=== PATIENT | male | born 1975 | race Caucasian/White ===

== ENCOUNTER 2020-02-17 10:08 | Outpatient (CLI) | payer OTHER, SELFPAY ==
[2020-02-17 11:19] LABS: Alanine Aminotransferase 60 U/L (4-50); Albumin Level 4.5 g/dL (3.5-5.1); Alkaline Phosphatase 71 U/L (38-126); Aspartate Amino Transferase 41 U/L (17-59); Bilirubin,Total 1.4 mg/dL (0.2-1.3); Blood Urea Nitrogen 22 mg/dL (9-20); Calcium 9.1 mg/dL (8.4-10.2); Carbon Dioxide 30 mmol/L (22-30); Chloride 101 mmol/L (98-107); Cholesterol 142 mg/dL (0-200); Estimated Glomerular Filt Rate > 60; Glucose 98 mg/dL (75-110); HDL Direct 34 mg/dL; Potassium 3.9 mmol/L (3.4-5.0); Sodium 138 mmol/L (137-145); Triglycerides 77 mg/dL (<150); Uric Acid 7.8 mg/dL (3.5-8.5)
[2020-02-17 11:30] LABS: LDL Cholesterol Direct 88 mg/dL
== END 2020-02-17 10:09 | disposition home or self-care (01) ==
PROVIDERS: PCP Internal Medicine; Visit Provider Internal Medicine
DX: I10 Essential (primary) hypertension (principal)
CPT/HCPCS: 36415; 80053; 80061; 84550

== ENCOUNTER 2020-08-04 09:10 | Outpatient (CLI) | payer OTHER, SELFPAY ==
[2020-08-04 09:33] LABS: Alanine Aminotransferase 52 U/L (4-50); Albumin Level 4.4 g/dL (3.5-5.1); Alkaline Phosphatase 64 U/L (38-126); Anion Gap 6 mmol/L (8-16); Aspartate Amino Transferase 38 U/L (17-59); Blood Urea Nitrogen 24 mg/dL (9-20); Carbon Dioxide 30 mmol/L (22-30); Chloride 103 mmol/L (98-107); Cholesterol 140 mg/dL (0-200); Estimated Glomerular Filt Rate > 60; Glucose 94 mg/dL (75-110); HDL Direct 36 mg/dL; Potassium 3.8 mmol/L (3.4-5.0); Sodium 139 mmol/L (137-145); Triglycerides 99 mg/dL (<150)
[2020-08-04 09:44] LABS: LDL Cholesterol Direct 83 mg/dL
== END 2020-08-04 09:11 | disposition home or self-care (01) ==
PROVIDERS: PCP Internal Medicine; Visit Provider Internal Medicine
DX: I10 Essential (primary) hypertension (principal)
CPT/HCPCS: 36415; 80053; 80061

== ENCOUNTER 2024-12-16 00:09 | Day surgery (SDC) | payer OTHER, SELFPAY ==
[2024-12-07 13:32] VITALS: BMI 35.9
--- OUTSIDE RECORDS SUMMARY | 2024-12-16 00:11 | XMS_ITS | Data Portability ---
Author Organization [place] [facility], Main Office Address [address] [place] [address] Assessment Encounter Date Assessment Date Assessment LastModified by Organization Details LastModified Time 02/13/2023 02/13/2023 Neosporin right groin for a week blood work weight loss medicines discussed diagnosis discussed follow-up 6 months he will call in 5-7 days if his groin area is not improving. Not available 02/13/2023 12:49:54 08/07/2023 08/07/2023 Blood work Weight loss Continue current therapy Follow-up 6 months Not available 08/09/2023 19:37:21 Plan of Treatment Reminders Order Date Submit Date Provider Last Modified By Organization Details Last Modified Time Details Appointments None recorded . Lab CBC w/ auto diff 023 08/07/20 [facility] (Lab), [address] [place], [address], 3 12:55:21 lipid panel, serum 023 08/07/20 23 [facility] (Lab), [address] [place], [address], 3 13:12:06 CMP, serum or plasma 023 08/07/20 23 [facility] (Lab), [address] [place], [address], 3 13:12:17 CMP, serum or plasma 023 02/14/20 23 [facility] (Lab), [address] [place], [address], 3 12:52:32 lipid panel, serum 023 02/14/20 23 [facility] (Lab), [address] [place], [address], 3 12:52:37 Referral None recorded . Procedures None recorded . Surgeries None recorded . Imaging None recorded . Medication Orders None recorded . Patient TargetsNo targets recorded. Patient InstructionsNo instructions recorded. Reason for Referral None Reported. Results Created Date Observation Date Name Description Value Unit Range Abnormal Flag Note LastModifiedBy Organization Detail LastModifiedTime 10/04/1910/04/2021 LIPID PANEL cholesterol 182 mg/dL 140-19 9 [facility] LUIS NSUS RECOM MENDA TION FOR CECIL STERO L: ADULT CHILD LOW RISK: <200 <170 BORDE RLINE : <200- 239 ----- HIGH RISK: >240 >200 Not Available [facility] (Lab) [address] [place], [address], 10/04/2021 14:26:32 10/04/19 22 10/04/2021 LIPID PANEL triglyceride s 132 mg/dL 0-150 NIH LUIS NSUS REPOR T RECOM MENDA TION FOR TRIGL YCERI RADHA: ADULT CHILD LOW RISK: <150 ----- BODER LINE: 150-1 99 ----- HIGH RISK: >200 ----- Not Available [facility] (Lab) [address] [place], [address], 10/04/2021 14:26:32 10/04/19 22 10/04/2021 LIPID PANEL HDL cholesterol 45 mg/dL 40- Not Available [facility] (Lab) [address] [place], [address], 10/04/2021 14:26:32 10/04/19 22 10/04/2021 LIPID PANEL LDL cholesterol, calculated 111 mg/dL 0-130 NIH LUIS NSUS REPOR T RECOM MENDA TIONS FOR LDL: ADULT CHILD LOW RISK <130 <110 (OPTI MAL LDL) <100 ----- BORDE RLINE : 130-1 59 ----- HIGH RISK: >160 >130 A TRIGL YCERI DE RESUL T >400 INVAL IDATE S THE CALCU LATIO N FOR LDL FRACT IONAT ION - THE LDL RESUL T WILL NOT BE REPOR ADRIANA. Not Available [facility] (Lab) [address] [place], [address], 10/04/2021 14:26:32 10/04/19 22 10/04/2021 COMPR EHENS MICHELLE METAB OLIC PANEL globulin 2.9 g/dL 2.6-4. 2 Not Available [facility] (Lab) [address] [place], [address], 10/04/2021 14:26:27 10/04/19 22 10/04/2021 COMPR EHENS MICHELLE METAB OLIC PANEL A/G ratio 1.6 ratio 1.0-2. 0 Not Available [facility] (Lab) [address] [place], [address], 10/04/2021 14:26:27 10/04/19 22 10/04/2021 COMPR EHENS MICHELLE METAB OLIC PANEL sodium 144 mmol/ L 137-14 5 Not Available [facility] (Lab) [address] [place], [address], 10/04/2021 14:26:27 10/04/19 22 10/04/2021 COMPR EHENS MICHELLE METAB OLIC PANEL potassium 4.2 mmol/ L 3.5-5. 1 Not Available [facility] (Lab) [address] [place], [address], 10/04/2021 14:26:27 10/04/19 22 10/04/2021 COMPR EHENS MICHELLE METAB OLIC PANEL chloride 104 mmol/ L 98-107 Not Available [facility] (Lab) [address] [place], [address], 10/04/2021 14:26:27 10/04/19 22 10/04/2021 COMPR EHENS MICHELLE METAB OLIC PANEL carbon dioxide 28 mmol/ L 22-30 Not Available [facility] (Lab) [address] [place], [address], 10/04/2021 14:26:27 10/04/19 22 10/04/2021 COMPR EHENS MICHELLE METAB OLIC PANEL agap 16.2 mmol/ L 14-22 Not Available [facility] (Lab) [address] [place], [address], 10/04/2021 14:26:27 10/04/19 22 10/04/2021 COMPR EHENS MICHELLE METAB OLIC PANEL glucose 101 mg/dL 70-99 high Not Available [facility] (Lab) [address] [place], [address], 10/04/2021 14:26:27 10/04/19 22 10/04/2021 COMPR EHENS MICHELLE METAB OLIC PANEL BUN 35 mg/dL 8-19 high Not Available [facility] (Lab) [address] [place], [address], 10/04/2021 14:26:27 10/04/19 22 10/04/2021 COMPR EHENS MICHELLE METAB OLIC PANEL creatinine 1.41 mg/dL 0.66-1 .25 high Not Available [facility] (Lab) [address] [place], [address], 10/04/2021 14:26:27 10/04/19 22 10/04/2021 COMPR EHENS MICHELLE METAB OLIC PANEL GFR 54 Refer ence Range : Carmel ge GFR Healt hy Adult : >60 mL/mi n/1.7 3 m2 Chron ic Kidne y Disea se: 15-60 mL/mi n/1.7 3 m2 Kidne y Failu re: <15/m L/min /1.73 m2 www.n iddk. nih.g ov The MDRD study equat ion has not been valid ated in child shawna <18 years of age; pregn ant women ; the elder ly >85 years of age; or in some racia l or ethni c subgr oups, such as Hispa nics. Outsi de the valid ated mimi eters , estim ated GFR is less accur ate, requi ring clini isatu judgm ent on a case- by-ca se basis . Clini isatu inter preta tion for other races and ages must be made by the clini veto. The MDRD study equat ion has not been valid ated for the evalu ation of serum creat inine relat ed to nutri danyel l statu s or medic ation usage . For perso ns <18 years of age, a pedia tric GFR calcu lator is avail able on the [facility] websi te: https ://arline casas.viola browne.o rg/pr ofess ional s/kdo qi/gf r_cal culat or Not Available [facility] (Lab) [address] [place], [address], 10/04/2021 14:26:27 10/04/19 22 10/04/2021 COMPR EHENS MICHELLE METAB OLIC PANEL alkaline phosphatase 58 U/L 38-126 Not Available [facility] (Lab) [address] [place], [address], 10/04/2021 14:26:27 10/04/19 22 10/04/2021 COMPR EHENS MICHELLE METAB OLIC PANEL alanine aminotransfe rase 49 U/L 0-50 Not Available [facility] (Lab) [address] [place], [address], 10/04/2021 14:26:27 10/04/19 22 10/04/2021 COMPR EHENS MICHELLE METAB OLIC PANEL aspartate aminotransfe rase 35 U/L 15-46 Not Available [facility] (Lab) [address] [place], [address], 10/04/2021 14:26:27 10/04/19 22 10/04/2021 COMPR EHENS MICHELLE METAB OLIC PANEL bilirubin, total 1.00 mg/dL 0.20-1 .30 Not Available [facility] (Lab) [address] [place], [address], 10/04/2021 14:26:27 10/04/19 22 10/04/2021 COMPR EHENS MICHELLE METAB OLIC PANEL calcium 9.0 mg/dL 8.4-10 .2 Not Available [facility] (Lab) [address] [place], [address], 10/04/2021 14:26:27 10/04/19 22 10/04/2021 COMPR EHENS MICHELLE METAB OLIC PANEL total protein 7.6 g/dL 6.3-8. 2 Not Available [facility] (Lab) [address] [place], [address], 10/04/2021 14:26:27 10/04/19 22 10/04/2021 COMPR EHENS MICHELLE METAB OLIC PANEL albumin 4.7 g/dL 3.4-5. 0 Not Available [facility] (Lab) [address] [place], [address], 10/04/2021 14:26:27 02/15/20 22 02/14/2022 LIPID PANEL cholesterol 190 mg/dL 140-19 9 NIH LUIS NSUS RECOM MENDA TION FOR CECIL STERO L: ADULT CHILD LOW RISK: <200 <170 BORDE RLINE : <200- 239 ----- HIGH RISK: >240 >200 Not Available [facility] (Lab) [address] [place], [address], 02/14/2022 12:40:45 02/15/20 22 02/14/2022 LIPID PANEL triglyceride s 127 mg/dL 0-150 NIH LUIS NSUS REPOR T RECOM MENDA TION FOR TRIGL YCERI RADHA: ADULT CHILD LOW RISK: <150 ----- BODER LINE: 150-1 99 ----- HIGH RISK: >200 ----- Not Available [facility] (Lab) [address] [place], [address], 02/14/2022 12:40:45 02/15/20 22 02/14/2022 LIPID PANEL HDL cholesterol 40 mg/dL 40- Not Available [facility] (Lab) [address] [place], [address], 02/14/2022 12:40:45 02/15/20 22 02/14/2022 LIPID PANEL LDL cholesterol, calculated 125 mg/dL 0-130 NIH LUIS NSUS REPOR T RECOM MENDA TIONS FOR LDL: ADULT CHILD LOW RISK <130 <110 (OPTI MAL LDL) <100 ----- DEZ RLINE : 130-1 59 ----- HIGH RISK: >160 >130 A TRIGL YCERI DE RESUL T >400 INVAL IDATE S THE CALCU LATIO N FOR LDL FRACT IONAT ION - THE LDL RESUL T WILL NOT BE REPOR ADRIANA. Not Available [facility] (Lab) [address] [place], [address], 02/14/2022 12:40:45 02/15/20 22 02/14/2022 COMPR EHENS MICHELLE METAB OLIC PANEL total protein 8.0 g/dL 6.3-8. 2 Not Available [facility] (Lab) [address] [place], [address], 02/14/2022 12:40:42 02/15/20 22 02/14/2022 COMPR EHENS MICHELLE METAB OLIC PANEL albumin 4.8 g/dL 3.4-5. 0 Not Available [facility] (Lab) [address] [place], [address], 02/14/2022 12:40:42 02/15/20 22 02/14/2022 COMPR EHENS MICHELLE METAB OLIC PANEL globulin 3.2 g/dL 2.6-4. 2 Not Available [facility] (Lab) [address] [place], [address], 02/14/2022 12:40:42 02/15/20 22 02/14/2022 COMPR EHENS MICHELLE METAB OLIC PANEL A/G ratio 1.5 ratio 1.0-2. 0 Not Available [facility] (Lab) [address] [place], [address], 02/14/2022 12:40:42 02/15/20 22 02/14/2022 COMPR EHENS MICHELLE METAB OLIC PANEL sodium 145 mmol/ L 137-14 5 Not Available [facility] (Lab) [address] [place], [address], 02/14/2022 12:40:42 02/15/20 22 02/14/2022 COMPR EHENS MICHELLE METAB OLIC PANEL potassium 4.7 mmol/ L 3.5-5. 1 Not Available [facility] (Lab) [address] [place], [address], 02/14/2022 12:40:42 02/15/20 22 02/14/2022 COMPR EHENS MICHELLE METAB OLIC PANEL chloride 113 mmol/ L 98-107 high Not Available [facility] (Lab) [address] [place], [address], 02/14/2022 12:40:42 02/15/20 22 02/14/2022 COMPR EHENS MICHELLE METAB OLIC PANEL carbon dioxide 22 mmol/ L 22-30 Not Available [facility] (Lab) [address] [place], [address], 02/14/2022 12:40:42 02/15/20 22 02/14/2022 COMPR EHENS MICHELLE METAB OLIC PANEL anion gap 14.7 mmol/ L 14-22 Not Available [facility] (Lab) [address] [place], [address], 02/14/2022 12:40:42 02/15/20 22 02/14/2022 COMPR EHENS MICHELLE METAB OLIC PANEL glucose 86 mg/dL 70-99 Not Available [facility] (Lab) [address] [place], [address], 02/14/2022 12:40:42 02/15/20 22 02/14/2022 COMPR EHENS MICHELLE METAB OLIC PANEL BUN 34 mg/dL 8-19 high Not Available [facility] (Lab) [address] [place], [address], 02/14/2022 12:40:42 02/15/20 22 02/14/2022 COMPR EHENS MICHELLE METAB OLIC PANEL creatinine 1.72 mg/dL 0.66-1 .25 high Not Available [facility] (Lab) [address] [place], [address], 02/14/2022 12:40:42 02/15/20 22 02/14/2022 COMPR EHENS MICHELLE METAB OLIC PANEL GFR 43 Refer ence Range : [place]el ge GFR Healt hy Adult : >60 mL/mi n/1.7 3 m2 Chron ic Kidne y Disea se: 15-60 mL/mi n/1.7 3 m2 Kidne y Failu re: <15/m L/min /1.73 m2 www.n iddk. nih.g ov The MDRD study equat ion has not been valid ated in child shawna <18 years of age; pregn ant women ; the elder ly >85 years of age; or in some racia l or ethni c subgr oups, such as [facility] nics. Outsi de the valid ated mimi eters , estim ated GFR is less accur ate, requi ring clini isatu judgm ent on a case- by-ca se basis . Clini isatu inter preta tion for other races and ages must be made by the clini veto. The MDRD study equat ion has not been valid ated for the evalu ation of serum creat inine relat ed to nutri danyel l statu s or medic ation usage . For perso ns <18 years of age, a pedia tric GFR calcu lator is avail able on the [facility] websi te: https ://arline w.viola [facility].o rg/pr ofess ional s/kdo qi/gf r_cal culat or Not Available [facility] (Lab) [address] [place], [address], 02/14/2022 12:40:42 02/15/20 22 02/14/2022 COMPR EHENS MICHELLE METAB OLIC PANEL alkaline phosphatase 56 U/L 38-126 Not Available [facility] (Lab) [address] [place], [address], 02/14/2022 12:40:42 02/15/20 22 02/14/2022 COMPR EHENS MICHELLE METAB OLIC PANEL alanine aminotransfe rase 49 U/L 0-50 Not Available [facility] (Lab) [address] [place], [address], 02/14/2022 12:40:42 02/15/20 22 02/14/2022 COMPR EHENS MICHELLE METAB OLIC PANEL aspartate aminotransfe rase 45 U/L 15-46 Not Available [facility] (Lab) [address] [place], [address], 02/14/2022 12:40:42 02/15/20 22 02/14/2022 COMPR EHENS MICHELLE METAB OLIC PANEL bilirubin, total 1.00 mg/dL 0.20-1 .30 Not Available [facility] (Lab) [address] [place], [address], 02/14/2022 12:40:42 02/15/20 22 02/14/2022 COMPR EHENS MICHELLE METAB OLIC PANEL calcium 9.6 mg/dL 8.4-10 .2 Not Available [facility] (Lab) [address] [place], [address], 02/14/2022 12:40:42 02/15/20 22 02/14/2022 CBC/C OMPLE TE BLD COUNT W/DIF F white blood cells 6.5 x10'3 /uL 4.2-10 .8 Not Available [facility] (Lab) [address] [place], [address], 02/14/2022 11:32:29 02/15/20 22 02/14/2022 CBC/C OMPLE TE BLD COUNT W/DIF F red blood cells 4.48 x10'6 /uL 4.10-5 .80 Not Available [facility] (Lab) [address] [place], [address], 02/14/2022 11:32:29 02/15/20 22 02/14/2022 CBC/C OMPLE TE BLD COUNT W/DIF F hemoglobin 13.1 g/dL 13.2-1 7.0 low Not Available [facility] (Lab) [address] [place], [address], 02/14/2022 11:32:29 02/15/20 22 02/14/2022 CBC/C OMPLE TE BLD COUNT W/DIF F hematocrit 40.0 % 39.3-5 0.0 Not Available [facility] (Lab) [address] [place], [address], 02/14/2022 11:32:29 02/15/20 22 02/14/2022 CBC/C OMPLE TE BLD COUNT W/DIF F mean red cell volume 89.3 fL 80.0-9 7.0 Not Available [facility] (Lab) [address] [place], [address], 02/14/2022 11:32:29 02/15/20 22 02/14/2022 CBC/C OMPLE TE BLD COUNT W/DIF F mean red cell hemoglobin 29.2 pg 27.0-3 3.0 Not Available [facility] (Lab) [address] [place], [address], 02/14/2022 11:32:29 02/15/20 22 02/14/2022 CBC/C OMPLE TE BLD COUNT W/DIF F mean RBC HGB concentratio n 32.8 g/dL 31.0-3 6.0 Not Available [facility] (Lab) [address] [place], [address], 02/14/2022 11:32:29 02/15/20 22 02/14/2022 CBC/C OMPLE TE BLD COUNT W/DIF F red cell distribution width 13.3 % 11.8-1 5.5 Not Available [facility] (Lab) [address] [place], [address], 02/14/2022 11:32:29 02/15/20 22 02/14/2022 CBC/C OMPLE TE BLD COUNT W/DIF F platelets 194 x10'3 /uL 150-40 0 Not Available [facility] (Lab) [address] [place], [address], 02/14/2022 11:32:29 02/15/20 22 02/14/2022 CBC/C OMPLE TE BLD COUNT W/DIF F mean platelet volume 11.4 fL 9.0-12 .4 Not Available [facility] (Lab) [address] [place], [address], 02/14/2022 11:32:29 02/15/20 22 02/14/2022 CBC/C OMPLE TE BLD COUNT W/DIF F neutrophils 67.1 % 39.0-7 2.0 Not Available [facility] (Lab) [address] [place], [address], 02/14/2022 11:32:29 02/15/20 22 02/14/2022 CBC/C OMPLE TE BLD COUNT W/DIF F lymphocytes 22.1 % 16.0-4 7.0 Not Available [facility] (Lab) [address] [place], [address], 02/14/2022 11:32:29 02/15/20 22 02/14/2022 CBC/C OMPLE TE BLD COUNT W/DIF F monocytes 6.5 % 5.0-12 .0 Not Available [facility] (Lab) [address] [place], [address], 02/14/2022 11:32:29 02/15/20 22 02/14/2022 CBC/C OMPLE TE BLD COUNT W/DIF F eosinophils 3.2 % 1.0-7. 0 Not Available [facility] (Lab) [address] [place], [address], 02/14/2022 11:32:29 02/15/20 22 02/14/2022 CBC/C OMPLE TE BLD COUNT W/DIF F basophils 0.8 % 0.0-2. 0 Not Available [facility] (Lab) [address] [place], [address], 02/14/2022 11:32:29 02/15/20 22 02/14/2022 CBC/C OMPLE TE BLD COUNT W/DIF F immature granulocytes 0.3 % 0.00-0 .50 Not Available [facility] (Lab) [address] [place], [address], 02/14/2022 11:32:29 02/15/20 22 02/14/2022 CBC/C OMPLE TE BLD COUNT W/DIF F neutrophils, absolute count 4.35 x10'3 /uL 1.5-8. 0 Not Available [facility] (Lab) [address] [place], [address], 02/14/2022 11:32:29 02/15/20 22 02/14/2022 CBC/C OMPLE TE BLD COUNT W/DIF F lymphocytes, absolute count 1.43 x10'3 /uL 1.07-3 .43 Not Available [facility] (Lab) [address] [place], [address], 02/14/2022 11:32:29 02/15/20 22 02/14/2022 CBC/C OMPLE TE BLD COUNT W/DIF F monocytes, absolute count 0.42 x10'3 /uL 0.29-0 .99 Not Available [facility] (Lab) [address] [place], [address], 02/14/2022 11:32:29 02/15/20 22 02/14/2022 CBC/C OMPLE TE BLD COUNT W/DIF F eosinophils, absolute count 0.21 x10'3 /uL 0.02-0 .53 Not Available [facility] (Lab) [address] [place], [address], 02/14/2022 11:32:29 02/15/20 22 02/14/2022 CBC/C OMPLE TE BLD COUNT W/DIF F basophils, absolute count 0.05 x10'3 /uL 0.01-0 .08 Not Available [facility] (Lab) [address] [place], [address], 02/14/2022 11:32:29 02/15/20 22 02/14/2022 CBC/C OMPLE TE BLD COUNT W/DIF F immature granulocytes ,absolute 0.02 x10'3 /uL 0.00-0 .05 Not Available [facility] (Lab) [address] [place], [address], 02/14/2022 11:32:29 02/15/20 22 02/14/2022 CBC/C OMPLE TE BLD COUNT W/DIF F nucleated red blood cells 0.0 % -0 Not Available [facility] (Lab) [address] [place], [address], 02/14/2022 11:32:29 02/15/20 22 02/14/2022 CBC/C OMPLE TE BLD COUNT W/DIF F NRBC# 0.00 x10'3 /uL Not Available [facility] (Lab) [address], [place], [address], 02/14/2022 11:32:29 03/13/20 22 03/13/2022 COLOG UARD cologuard result reportable negati ve negati ve NEGAT MICHELLE TEST RESUL T. A negat michelle Colog uard resul t indic ates a low likel ihood that a color ectal cance r (CRC) or advan celestina adeno ma (damian omato us polyp s with more advan celestina pre-m align ant featu res) is prese nt. The [facility] e that a perso n with a negat michelle Colog uard test has a color ectal cance r is less than 1 in 1500 (nega tive predi ctive value >99.9 %) or has an advan celestina adeno ma is less than 5.3% (nega tive predi ctive value 94.7% ). These data are based on a prosp ectiv e cross -sect ional study of 0 indiv idual s at [facility] risk for color ectal cance r who were scree estella with both Colog uard and colon oscop y. (Kolby Faustin et al, N Engl J Med 2014; 370(1 4):12 86-12 97) The danielle l value (refe rence range ) for this assay is negat michelle. COLOG UARD RE-SC REENI NG RECOM MENDA TION: Perio dic color ectal cance r scree luisa is an impor tant part of preve ntive healt hcare for asymp tomat ic indiv idual s at [place] risk for color ectal cance r. Follo wing a negat michelle Colog uard resul t, the Ameri can Cance r Socie ty and U.S. Multi -Soci ety Task Force scree luisa guide lines recom mend a Colog uard re-sc reeni ng inter thania of 3 years . Refer ences : Ameri can Cance r Socie ty Guide line for Color ectal Cance r Scree luisa: https ://arline w.can cer.o rg/ca ncer/ colon -rect al-ca ncer/ detec tion- diagn osis- stagi ng/ac s-rec ommen datio ns.ht ml.; Franky OTTO, Kaela MIR, Hal WolffK, Color ectal Cance r Scree luisa: Recom menda tions for Physi cians and Patie nts from the U.S. Multi -Soci ety Task Force on Color ectal Cance r Scree Lulu moran rolog y 2017; 112:1 016-1 030. TEST DESCR IPTIO N: Fults site algor ithmi c noelle sis of stool DNA-b iomar kers with hemog lobin immun oassa y. Quant itati ve value s of indiv idual bioma rkers are not repor table and are not assoc iated with indiv idual bioma rker resul t refer ence range s. Colog uard is inten ded for color ectal cance r scree luisa of adult s of eithe r sex, 45 years or older , who are at [facility] for color ectal cance r (CRC) . Colog uard has been appro isaura for use by the U.S. FDA. The perfo rmanc e of Colog uard was estab lishe d in a cross secti onal study of [facility] adult s aged 50-84 . Colog uard perfo rmanc e in patie nts ages 45 to 49 years was estim ated by sub-g roup noelle sis of near- age group s. Colon oscop ies perfo rmed for a posit michelle resul t may find as the most clini shira signi kunal catherine n: color ectal cance r [4.0% ], advan celestina adeno ma (incl uding sessi le earline adriana polyp s great er than or equal to 1cm diame ter) [20%] or non- advan celestina adeno ma [31%] ; or no color ectal neopl lizbeth [45%] . These estim ates are deriv ed from a prosp ectiv e cross -sect ional scree luisa study of 10,00 0 indiv idual s at [facility] risk for color ectal cance r who were scree setella with both Colog uard and colon oscop y. (Kolby Webster. et al, N Engl J Med 2014; 370(1 4):12 86-12 97.) Colog uard may produ ce a false negat michelle or false posit michelle resul t (no color ectal cance r or preca ncero us polyp prese nt at colon oscop y follo w up). A negat michelle Colog uard test resul t does not guara ntee the absen ce of CRC or advan celestina adeno ma (pre- cance r). The curre nt Colog uard scree luisa inter thania is every 3 years . (Amer ican Cance r Socie ty and U.S. Multi -Soci ety Task Force ). Colog uard perfo rmanc e data in a 10,00 0 patie nt pivot al study using colon oscop y as the refer ence metho d can be acces sed at the follo wing locat ion: www.e xactl abs.c om/re radha . Addit ional descr iptio n of the Colog uard test proce ss, warni ngs and preca ution s can be found at www.c ologu maricarmen.c om. Not Available [facility] (Cologuard Orders Only) [address], [place], [address], 03/22/2022 01:40:28 02/14/20 23 02/13/2023 COMPR EHENS MICHELLE METAB OLIC PANEL sodium 143 mmol/ L 137-14 5 Not Available [facility] (Lab) [address] [place], [address], 02/13/2023 12:52:32 02/14/20 23 02/13/2023 COMPR EHENS MICHELLE METAB OLIC PANEL potassium 4.5 mmol/ L 3.5-5. 1 Not Available [facility] (Lab) [address] [place], [address], 02/13/2023 12:52:32 02/14/20 23 02/13/2023 COMPR EHENS MICHELLE METAB OLIC PANEL chloride 105 mmol/ L 98-107 Not Available [facility] (Lab) [address] [place], [address], 02/13/2023 12:52:32 02/14/20 23 02/13/2023 COMPR EHENS MICHELLE METAB OLIC PANEL carbon dioxide 26 mmol/ L 22-30 Not Available [facility] (Lab) [address] [place], [address], 02/13/2023 12:52:32 02/14/20 23 02/13/2023 COMPR EHENS MICHELLE METAB OLIC PANEL anion gap 16.5 mmol/ L 14-22 Not Available [facility] (Lab) [address] [place], [address], 02/13/2023 12:52:32 02/14/20 23 02/13/2023 COMPR EHENS MICHELLE METAB OLIC PANEL glucose 86 mg/dL 70-99 Not Available [facility] (Lab) [address] [place], [address], 02/13/2023 12:52:32 02/14/20 23 02/13/2023 COMPR EHENS MICHELLE METAB OLIC PANEL BUN 25 mg/dL 8-19 high Not Available [facility] (Lab) [address] [place], [address], 02/13/2023 12:52:32 02/14/20 23 02/13/2023 COMPR EHENS MICHELLE METAB OLIC PANEL creatinine 1.35 mg/dL 0.66-1 .25 high Not Available [facility] (Lab) [address] [place], [address], 02/13/2023 12:52:32 02/14/20 23 02/13/2023 COMPR EHENS MICHELLE METAB OLIC PANEL GFR 57 Refer ence Range : [place] ge GFR Healt hy Adult : >60 mL/mi n/1.7 3 m2 Chron ic Kidne y Disea se: 15-60 mL/mi n/1.7 3 m2 Kidne y Failu re: <15/m L/min /1.73 m2 [email or web address] The MDRD study equat ion has not been valid ated in child shawna <18 years of age; pregn ant women ; the elder ly >85 years of age; or in some racia l or ethni c subgr oups, such as Hispa nics. Outsi de the valid ated mimi eters , estim ated GFR is less accur ate, requi ring clini isatu judgm ent on a case- by-ca se basis . Clini isatu inter preta tion for other races and ages must be made by the clini veto. The MDRD study equat ion has not been valid ated for the evalu ation of serum creat inine relat ed to nutri danyel l statu s or medic ation usage . For perso ns <18 years of age, a pedia tric GFR calcu lator is avail able on the [facility] websi te: https ://arline w.kid pavan.o rg/pr ofess ional s/kdo qi/gf r_cal culat or Not Available [facility] (Lab) [address] [place], [address], 02/13/2023 12:52:32 02/14/20 23 02/13/2023 COMPR EHENS MICHELLE METAB OLIC PANEL alkaline phosphatase 56 U/L 38-126 Not Available [facility] (Lab) [address] [place], [address], 02/13/2023 12:52:32 02/14/20 23 02/13/2023 COMPR EHENS MICHELLE METAB OLIC PANEL alanine aminotransfe rase 62 U/L 0-50 high Not Available [facility] (Lab) [address] [place], [address], 02/13/2023 12:52:32 02/14/20 23 02/13/2023 COMPR EHENS MICHELLE METAB OLIC PANEL aspartate aminotransfe rase 39 U/L 15-46 Not Available [facility] (Lab) [address] [place], [address], 02/13/2023 12:52:32 02/14/20 23 02/13/2023 COMPR EHENS MICHELLE METAB OLIC PANEL bilirubin, total 1.20 mg/dL 0.20-1 .30 Not Available [facility] (Lab) [address] [place], [address], 02/13/2023 12:52:32 02/14/20 23 02/13/2023 COMPR EHENS MICHELLE METAB OLIC PANEL calcium 9.1 mg/dL 8.4-10 .2 Not Available [facility] (Lab) [address] [place], [address], 02/13/2023 12:52:32 02/14/20 23 02/13/2023 COMPR EHENS MICHELLE METAB OLIC PANEL total protein 7.5 g/dL 6.3-8. 2 Not Available [facility] (Lab) [address] [place], [address], 02/13/2023 12:52:32 02/14/20 23 02/13/2023 COMPR EHENS MICHELLE METAB OLIC PANEL albumin 4.3 g/dL 3.4-5. 0 Not Available [facility] (Lab) [address] [place], [address], 02/13/2023 12:52:32 02/14/20 23 02/13/2023 COMPR EHENS MICHELLE METAB OLIC PANEL globulin 3.2 g/dL 2.6-4. 2 Not Available [facility] (Lab) [address] [place], [address], 02/13/2023 12:52:32 02/14/20 23 02/13/2023 COMPR EHENS MICHELLE METAB OLIC PANEL A/G ratio 1.3 ratio 1.0-2. 0 Not Available [facility] (Lab) [address] [place], [address], 02/13/2023 12:52:32 02/14/2002/13/2023 LIPID PANEL cholesterol 143 mg/dL 140-19 9 [facility] LUIS NSUS RECOM MENDA TION FOR CECIL STERO L: ADULT CHILD LOW RISK: <200 <170 BORDE RLINE : <200- 239 ----- HIGH RISK: >240 >200 Not Available [facility] (Lab) [address] [place], [address], 02/13/2023 12:52:36 02/14/2002/13/2023 LIPID PANEL triglyceride s 129 mg/dL 0-150 NIH LUIS NSUS REPOR T RECOM MENDA TION FOR TRIGL YCERI RADHA: ADULT CHILD LOW RISK: <150 ----- BODER LINE: 150-1 99 ----- HIGH RISK: >200 ----- Not Available [facility] (Lab) [address] [place], [address], 02/13/2023 12:52:36 02/14/2002/13/2023 LIPID PANEL HDL cholesterol 37 mg/dL 40- low Not Available [facility] (Lab) [address] [place], [address], 02/13/2023 12:52:36 02/14/2002/13/2023 LIPID PANEL LDL cholesterol, calculated 80 mg/dL 0-130 [facility] LUIS NSUS REPOR T RECOM MENDA TIONS FOR LDL: ADULT CHILD LOW RISK <130 <110 (OPTI MAL LDL) <100 ----- BORDE RLINE : 130-1 59 ----- HIGH RISK: >160 >130 A TRIGL YCERI DE RESUL T >400 INVAL IDATE S THE CALCU LATIO N FOR LDL FRACT IONAT ION - THE LDL RESUL T WILL NOT BE REPOR ADRIANA. Not Available [facility] (Lab) [address] [place], [address], 02/13/2023 12:52:36 08/09/20 23 08/09/2023 CBC/C OMPLE TE BLD COUNT W/DIF F white blood cells 6.4 x10'3 /uL 4.2-10 .8 Not Available [facility] (Lab) [address] [place], [address], 08/09/2023 12:55:20 08/09/20 23 08/09/2023 CBC/C OMPLE TE BLD COUNT W/DIF F red blood cells 4.76 x10'6 /uL 4.10-5 .80 Not Available [facility] (Lab) [address] [place], [address], 08/09/2023 12:55:20 08/09/20 23 08/09/2023 CBC/C OMPLE TE BLD COUNT W/DIF F hemoglobin 14.3 g/dL 13.2-1 7.0 Not Available [facility] (Lab) [address] [place], [address], 08/09/2023 12:55:20 08/09/20 23 08/09/2023 CBC/C OMPLE TE BLD COUNT W/DIF F hematocrit 43.5 % 39.3-5 0.0 Not Available [facility] (Lab) [address] [place], [address], 08/09/2023 12:55:20 08/09/20 23 08/09/2023 CBC/C OMPLE TE BLD COUNT W/DIF F mean red cell volume 91.4 fL 80.0-9 7.0 Not Available [facility] (Lab) [address] [place], [address], 08/09/2023 12:55:20 08/09/20 23 08/09/2023 CBC/C OMPLE TE BLD COUNT W/DIF F mean red cell hemoglobin 30.0 pg 27.0-3 3.0 Not Available [facility] (Lab) [address] [place], [address], 08/09/2023 12:55:20 08/09/20 23 08/09/2023 CBC/C OMPLE TE BLD COUNT W/DIF F mean RBC HGB concentratio n 32.9 g/dL 31.0-3 6.0 Not Available [facility] (Lab) [address] [place], [address], 08/09/2023 12:55:20 08/09/20 23 08/09/2023 CBC/C OMPLE TE BLD COUNT W/DIF F red cell distribution width 12.9 % 11.8-1 5.5 Not Available [facility] (Lab) [address] [place], [address], 08/09/2023 12:55:20 08/09/20 23 08/09/2023 CBC/C OMPLE TE BLD COUNT W/DIF F platelets 178 x10'3 /uL 150-40 0 Not Available [facility] (Lab) [address] [place], [address], 08/09/2023 12:55:20 08/09/20 23 08/09/2023 CBC/C OMPLE TE BLD COUNT W/DIF F mean platelet volume 11.3 fL 9.0-12 .4 Not Available [facility] (Lab) [address] [place], [address], 08/09/2023 12:55:20 08/09/20 23 08/09/2023 CBC/C OMPLE TE BLD COUNT W/DIF F neutrophils 73.0 % 39.0-7 2.0 high Not Available [facility] (Lab) [address] [place], [address], 08/09/2023 12:55:20 08/09/20 23 08/09/2023 CBC/C OMPLE TE BLD COUNT W/DIF F lymphocytes 18.0 % 16.0-4 7.0 Not Available [facility] (Lab) [address] [place], [address], 08/09/2023 12:55:20 08/09/20 23 08/09/2023 CBC/C OMPLE TE BLD COUNT W/DIF F monocytes 6.9 % 5.0-12 .0 Not Available [facility] (Lab) [address] [place], [address], 08/09/2023 12:55:20 08/09/20 23 08/09/2023 CBC/C OMPLE TE BLD COUNT W/DIF F eosinophils 0.9 % 1.0-7. 0 low Not Available [facility] (Lab) [address] [place] [place], [address], 08/09/2023 12:55:20 08/09/20 23 08/09/2023 CBC/C OMPLE TE BLD COUNT W/DIF F basophils 0.9 % 0.0-2. 0 Not Available [facility] (Lab) [address] [place], [address], 08/09/2023 12:55:20 08/09/20 23 08/09/2023 CBC/C OMPLE TE BLD COUNT W/DIF F immature granulocytes 0.3 % 0.00-0 .50 Not Available [facility] (Lab) [address] [place], [address], 08/09/2023 12:55:20 08/09/20 23 08/09/2023 CBC/C OMPLE TE BLD COUNT W/DIF F neutrophils, absolute count 4.66 x10'3 /uL 1.5-8. 0 Not Available [facility] (Lab) [address] [place], [address], 08/09/2023 12:55:20 08/09/20 23 08/09/2023 CBC/C OMPLE TE BLD COUNT W/DIF F lymphocytes, absolute count 1.15 x10'3 /uL 1.07-3 .43 Not Available [facility] (Lab) [address] [place], [address], 08/09/2023 12:55:20 08/09/20 23 08/09/2023 CBC/C OMPLE TE BLD COUNT W/DIF F monocytes, absolute count 0.44 x10'3 /uL 0.29-0 .99 Not Available [facility] (Lab) [address] [place], [address], 08/09/2023 12:55:20 08/09/20 23 08/09/2023 CBC/C OMPLE TE BLD COUNT W/DIF F eosinophils, absolute count 0.06 x10'3 /uL 0.02-0 .53 Not Available [facility] (Lab) [address] [place], [address], 08/09/2023 12:55:20 08/09/20 23 08/09/2023 CBC/C OMPLE TE BLD COUNT W/DIF F basophils, absolute count 0.06 x10'3 /uL 0.01-0 .08 Not Available [facility] (Lab) [address] [place], [address], 08/09/2023 12:55:20 08/09/20 23 08/09/2023 CBC/C OMPLE TE BLD COUNT W/DIF F immature granulocytes ,absolute 0.02 x10'3 /uL 0.00-0 .05 Not Available [facility] (Lab) [address] [place], [address], 08/09/2023 12:55:20 08/09/20 23 08/09/2023 CBC/C OMPLE TE BLD COUNT W/DIF F nucleated red blood cells 0.0 % -0 Not Available [facility] (Lab) [address] [place], [address], 08/09/2023 12:55:20 08/09/20 23 08/09/2023 CBC/C OMPLE TE BLD COUNT W/DIF F NRBC# 0.00 x10'3 /uL Not Available [facility] (Lab) [address] [place], [address], 08/09/2023 12:55:20 08/09/20 23 08/09/2023 LIPID PANEL cholesterol 154 mg/dL 140-19 9 [facility] LUIS NSUS RECOM MENDA TION FOR CECIL STERO L: ADULT CHILD LOW RISK: <200 <170 BORDE RLINE : <200- 239 ----- HIGH RISK: >240 >200 Not Available [facility] (Lab) [address] [place], [address], 08/09/2023 13:12:06 08/09/20 23 08/09/2023 LIPID PANEL triglyceride s 93 mg/dL 0-150 [facility] LUIS NSUS REPOR T RECOM MENDA TION FOR TRIGL YCERI RADHA: ADULT CHILD LOW RISK: <150 ----- BODER LINE: 150-1 99 ----- HIGH RISK: >200 ----- Not Available [facility] (Lab) [address] [place], [address], 08/09/2023 13:12:06 08/09/20 23 08/09/2023 LIPID PANEL HDL cholesterol 41 mg/dL 40- Not Available [facility] (Lab) [address] [place], [address], 08/09/2023 13:12:06 08/09/20 23 08/09/2023 LIPID PANEL LDL cholesterol, calculated 94 mg/dL 0-130 [facility]IS NSUS REPOR T RECOM MENDA TIONS FOR LDL: ADULT CHILD LOW RISK <130 <110 (OPTI MAL LDL) <100 ----- BORDE RLINE : 130-1 59 ----- HIGH RISK: >160 >130 A TRIGL YCERI DE RESUL T >400 INVAL IDATE S THE CALCU LATIO N FOR LDL FRACT IONAT ION - THE LDL RESUL T WILL NOT BE REPOR ADRIANA. Not Available [facility] (Lab) [address] [place], [address], 08/09/2023 13:12:06 08/09/20 23 08/09/2023 COMPR EHENS MICHELLE METAB OLIC PANEL sodium 139 mmol/ L 137-14 5 Not Available [facility] (Lab) [address] [place], [address], 08/09/2023 13:12:16 08/09/20 23 08/09/2023 COMPR EHENS MICHELLE METAB OLIC PANEL potassium 4.3 mmol/ L 3.5-5. 1 Not Available [facility] (Lab) [address] [place], [address], 08/09/2023 13:12:16 08/09/20 23 08/09/2023 COMPR EHENS MICHELLE METAB OLIC PANEL chloride 106 mmol/ L 98-107 Not Available [facility] (Lab) [address] [place], [address], 08/09/2023 13:12:16 08/09/20 23 08/09/2023 COMPR EHENS MICHELLE METAB OLIC PANEL carbon dioxide 25 mmol/ L 22-30 Not Available [facility] (Lab) [address] [place], [address], 08/09/2023 13:12:16 08/09/20 23 08/09/2023 COMPR EHENS MICHELLE METAB OLIC PANEL anion gap 12.3 mmol/ L 14-22 low Not Available [facility] (Lab) [address] [place], [address], 08/09/2023 13:12:16 08/09/20 23 08/09/2023 COMPR EHENS MICHELLE METAB OLIC PANEL glucose 93 mg/dL 70-99 Not Available [facility] (Lab) [address] [place], [address], 08/09/2023 13:12:16 08/09/20 23 08/09/2023 COMPR EHENS MICHELLE METAB OLIC PANEL BUN 21 mg/dL 8-19 high Not Available [facility] (Lab) [address] [place], [address], 08/09/2023 13:12:16 08/09/20 23 08/09/2023 COMPR EHENS MICHELLE METAB OLIC PANEL creatinine 1.21 mg/dL 0.66-1 .25 Not Available [facility] (Lab) [address] [place], [address], 08/09/2023 13:12:16 08/09/20 23 08/09/2023 COMPR EHENS MICHELLE METAB OLIC PANEL GFR >60 Refer ence Range : [facility] GFR Healt hy Adult : >60 mL/mi n/1.7 3 m2 Chron ic Kidne y Disea se: 15-60 mL/mi n/1.7 3 m2 Kidne y Failu re: <15/m L/min /1.73 m2 www.n iddk. nih.g ov The MDRD study equat ion has not been valid ated in child shawna <18 years of age; pregn ant women ; the elder ly >85 years of age; or in some racia l or ethni c subgr oups, such as Sulma nics. Outsi de the valid ated mimi eters , estim ated GFR is less accur ate, requi ring clini isatu judgm ent on a case- by-ca se basis . Clini isatu inter preta tion for other races and ages must be made by the clini veto. The MDRD study equat ion has not been valid ated for the evalu ation of serum creat inine relat ed to nutri danyel l statu s or medic ation usage . For perso ns <18 years of age, a pedia tric GFR calcu lator is avail able on the F websi te: https ://arline browne.o rg/pr ofess ional s/kdo qi/gf r_cal culat or Not Available [facility] (Lab) [address] [place], [address], 08/09/2023 13:12:16 08/09/20 23 08/09/2023 COMPR EHENS MICHELLE METAB OLIC PANEL alkaline phosphatase 61 U/L 38-126 Not Available [facility] (Lab) [address] [place], [address], 08/09/2023 13:12:16 08/09/20 23 08/09/2023 COMPR EHENS MICHELLE METAB OLIC PANEL alanine aminotransfe rase 55 U/L 0-50 high Not Available [facility] (Lab) [address] [place], [address], 08/09/2023 13:12:16 08/09/20 23 08/09/2023 COMPR EHENS MICHELLE METAB OLIC PANEL aspartate aminotransfe rase 33 U/L 15-46 Not Available [facility] (Lab) [address] [place], [address], 08/09/2023 13:12:16 08/09/20 23 08/09/2023 COMPR EHENS MICHELLE METAB OLIC PANEL bilirubin, total 1.10 mg/dL 0.20-1 .30 Not Available [facility] (Lab) [address] [place], [address], 08/09/2023 13:12:16 08/09/20 23 08/09/2023 COMPR EHENS MICHELLE METAB OLIC PANEL calcium 9.3 mg/dL 8.4-10 .2 Not Available [facility] (Lab) [address] [place], [address], 08/09/2023 13:12:16 08/09/20 23 08/09/2023 COMPR EHENS MICHELLE METAB OLIC PANEL total protein 7.4 g/dL 6.3-8. 2 Not Available [facility] (Lab) [address] [place], [address], 08/09/2023 13:12:16 08/09/20 23 08/09/2023 COMPR EHENS MICHELLE METAB OLIC PANEL albumin 4.3 g/dL 3.4-5. 0 Not Available [facility] (Lab) [address] [place], [address], 08/09/2023 13:12:16 08/09/20 23 08/09/2023 COMPR EHENS MICHELLE METAB OLIC PANEL globulin 3.1 g/dL 2.6-4. 2 Not Available [facility] (Lab) [address] [place], [address], 08/09/2023 13:12:16 08/09/20 23 08/09/2023 COMPR EHENS MICHELLE METAB OLIC PANEL A/G ratio 1.4 ratio 1.0-2. 0 Not Available [facility] (Lab) [address] [place] [address], [address], 08/09/2023 13:12:16 Result Notes None recorded. Problems Name Problem SNOMED Code Status Onset Date Resolution Date Notes Provider Name and Address Organization Details Recorded Time Benign essential hypertens ion 1759117 Active Not Available [facility] 3 03:43:19 Screening - NAD 818041837 Active Not Available [facility] 3 03:43:19 Impacted cerumen 41012340 Active Not Available [facility] 3 03:43:19 Vitamin D deficienc y 58351749 Active Not Available [facility] 3 03:43:19 Chronic dermatiti s 43689695 Active 2021 Not Available [facility] 3 03:43:19 Hypertens michelle disorder 20553451 Active Not Available [facility] 3 03:43:19 Dizziness 459578052 Active Not Available [facility] 3 03:43:19 Obesity 848024869 Active Not Available [facility] 3 03:43:19 Hypokalem ia 98769325 Active Not Available [facility] 3 03:43:19 Hyperlipi demia 43525635 Active 2020 Not Available [facility] 03:43:19 Essential hypertens ion 51884967 Active Not Available [facility] 3 03:43:19 Allergic rhinitis 36153650 Active Not Available [facility] 3 03:43:19 Palpitati ons 71029292 Active Not Available [facility] 3 03:43:19 Kidney stone 62227730 Active 2002 s/p Lithotrips y Not Available [facility] 3 03:43:19 Problem Notes None recorded. Procedures Surgical History Date Name Laterality Status Provider Name and Address Organization Details Recorded Time 02/29/20 incision and drainage completed Not Available [facility] 10/31/2022 04:44:18 01/13/20 15 Lithotripsy completed Not Available [facility] 11/01/19 04:44:18 Lithotripsy completed Not Available [facility] 10/31/2022 04:44:18 tonsilectomy/ad enoids completed Not Available [facility] 10/31/2022 04:44:18 Imaging Results None recorded. Procedure Notes None recorded. Medical Equipment None Reported. Allergies Allergen ID Allergen Name Allergen Category Reaction Reaction Severity Criticality Documentation Date Start Date Code Code System Note Provider Name and Address Organization Details Recorded Time 9059 Product containin g penicilli n (product) medicatio n Not available Not available Not available 10/31/2022 57066 [id number] SNOMED Not Available [facility] 3 05:07:48 Medications Name Sig Start Date Stop Date Status Note LastModified by Organization Details LastModified Time fluconazole 100 mg tablet Take 1 tablet every day by oral route for 7 days. active Not Available Not Available No t Available atorvastati n 10 mg tablet Take 1 tablet by mouth once daily 2022 active Not Available Not Available Not Avai lable hydrocodone 5 mg-acetamin ophen 325 mg tablet prn 05/01 completed Not Available Not Available Not Available Nystop 100,000 unit/gram topical powder APPLY POWDER TOPICALLY TO AFFECTED AREA(S) TWICE DAILY 03/29 completed Not Available Not Available Not Available lisinopril 20 mg tablet Take 1 tablet every day by oral route. 2012 active Not Available Not Available Not Avai lable clindamycin HCl 150 mg capsule TAKE 3 CAPSULES BY MOUTH THREE TIMES DAILY 03/08 completed Not Available Not Available Not Available amlodipine 5 mg tablet TAKE ONE TABLET BY MOUTH ONCE DAILY 05/07 completed Not Available Not Available Not Available allopurinol 100 mg tablet TAKE 1 TABLET BY MOUTH ONCE DAILY active Not Available Not Available No t Available linezolid 600 mg tablet TAKE 1 TABLET BY MOUTH TWICE DAILY 03/29 completed Not Available Not Available Not Available potassium citrate ER 10 mEq (1,080 mg) tablet,exte nded release TAKE 1 TABLET BY MOUTH TWICE DAILY 08/03 completed Not Available Not Available Not Available tacrolimus 0.1 % topical ointment APPLY OINTMENT EXTERNALL Y TO AFFECTED AREA NEEDED 10/04 completed Not Available Not Available Not Available triamcinolo ne acetonide 0.1 % topical ointment APPLY OINTMENT TOPICALLY TO AFFECTED AREA TWICE DAILY NEEDED active Not Available Not Available No t Available lisinopril 10 mg tablet active Not Available Not Available Not Available lisinopril 20 mg-hydrochl orothiazide 25 mg tablet Take 1 tablet every day by oral route. 10/23 completed Not Available Not Available Not Available mupirocin 2 % topical ointment apply to nares BID x2wks active Not Available Not Available No t Available levofloxaci n 500 mg tablet Take 1 tablet every day by oral route for 7 days. active Not Available Not Available No t Available levofloxaci n 750 mg tablet 02/21 completed Not Available Not Available Not Available Vitamin D2 1,250 mcg (50,000 unit) capsule TAKE 1 TABLET BY MOUTH ONCE A WEEK 02/09 completed Not Available Not Available Not Available Benicar 20 mg tablet Take 1 tablet every day by oral route as directed. 05/07 completed Not Available Not Available Not Available Aleve as needed 05/01 completed Not Available Not Available Not Available Pepto-Bismo l as needed 05/01 completed Not Available Not Available Not Available Claritin as needed 05/01 completed Not Available Not Available Not Available Advil as needed 05/01 completed Not Available Not Available Not Available amlodipine 5 mg-olmesart an 20 mg tablet Take 1 tablet by mouth once daily 2022 active Not Available Not Available Not Avai lable Bystolic 5 mg tablet TAKE 1 2 (ONE HALF) TABLET BY MOUTH ONCE DAILY 02/09 completed Not Available Not Available Not Available nebivolol 2.5 mg tablet active Not Available Not Available Not Available Vitals Date Recorded Body mass index (BMI) Body height Heart rate Body temperature Body weight Systolic blood pressure Diastolic blood pressure Provider Name and Address Organization Details Last Updated DateTime 2 33.9 kg/m2 182.88 cm 72 /min 97.5 [degF] 125640. 09 g 110 mm[Hg] 60 mm[Hg] Not Available [facility] 3 04:45:19 Date Recorded Body mass index (BMI) Body height Heart rate Body temperature Body weight Systolic blood pressure Diastolic blood pressure Provider Name and Address Organization Details Last Updated DateTime 2 33.9 kg/m2 182.88 cm 77 /min 97.2 [degF] 549980. 09 g 114 mm[Hg] 68 mm[Hg] Not Available [facility] 3 04:45:19 Date Recorded Body mass index (BMI) Body height Heart rate Body temperature Body weight Systolic blood pressure Diastolic blood pressure Provider Name and Address Organization Details Last Updated DateTime 2 35 kg/m2 182.88 cm 65 /min 98.1 [degF] 580566. 83 g 122 mm[Hg] 78 mm[Hg] Not Available [facility] 3 04:45:19 Date Recorded Body height Body mass index (BMI) Body weight Body temperature Heart rate Systolic blood pressure Diastolic blood pressure Provider Name and Address Organization Details Last Updated DateTime 3 182.88 cm 33.8 kg/m2 130057. 5 g 97.2 [degF] 66 /min 122 mm[Hg] 74 mm[Hg] NATHALY Gonzales [place] - [facility] 3 10:19:07 Date Recorded Body height Body mass index (BMI) Body weight Body temperature Heart rate Systolic blood pressure Diastolic blood pressure Provider Name and Address Organization Details Last Updated DateTime 3 182.88 cm 34.2 kg/m2 991229. 28 g 97.8 [degF] 62 /min 124 mm[Hg] 82 mm[Hg] NATHALY Gonzales [place] - [facility] 3 11:25:36 Social History Question Answer Notes LastModified by Organization Details LastModified Time Tobacco Smoking Status Never Smoker Not Available [facility] 10/31/2022 04:15:25 Do You Have An Advance Directive? No [email or web address] [id number] Information not available 10/31/2022 What Is Your Level Of Alcohol Consumption? None [email or web address] [id number] Information not available 10/31/2022 Are You Blind Or Do You Have Difficulty Seeing? No [email or web address].030 [id number] Information not available 10/31/2022 What Is Your Level Of Caffeine Consumption? Heavy Drinks A Lot Of Soda [email or web address].030 [id number] Information not available 10/31/2022 How Much Tobacco Do You Chew? None [email or web address] [id number] Information not available 10/31/2022 In The 14 Days Before Symptom Onset, Have You Had Close Contact With A Laboratory-confi rmed COVID-19 While That Case Was Ill? No [email or web address] [id number] Information not available 10/31/2022 In The 14 Days Before Symptom Onset, Have You Had Close Contact With A Person Who Is Under Investigation For COVID-19 While That Person Was Ill? No [email or web address].030 [id number] Information not available 10/31/2022 Are You Deaf Or Do You Have Serious Difficulty Hearing? No [email or web address] [id number] Information not available 10/31/2022 What Type Of Diet Are You Following? REGULAR [email or web address].030 [id number] Information not available 10/31/2022 Which Illicit Or Recreational Drugs Have You Used? None [email or web address].030 [id number] Information not available 10/31/2022 Do You Or Have You Ever Used E-cigarettes Or Vape? Never Used Electronic Cigarettes [email or web address].030 [id number] Information not available 10/31/2022 What Is The Highest Grade Or Level Of School You Have Completed Or The Highest Degree You Have Received? 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 No MIGRATION.030 [id number] Information not available 10/31/2022 What Is The Fluoride Status Of Your Home? Unknown [email or web address].0301 [id number] Information not available 10/31/2022 Are There Any Guns Present In Your Home? No MIGRATION.0301 [id number] Information not available 10/31/2022 Do You Use Insect Repellent Routinely? No [id number].0301 [id number] Information not available 10/31/2022 Where Do You Live? SingleLevelHouse MIGRATION.0301 [id number] Information not available 10/31/2022 Do You Have A Medical Power Of Vertical Mill Operator? No [id number].0301 [id number] Information not available 10/31/2022 What Was The Date Of Your Most Recent Tobacco Screening? 08/07/2023 [email or web address] Information not available 08/07/2023 Do You Have Any Pets? Yes Cat MIGRATION.0301 [id number] Information not available 10/31/2022 What Is Your Relationship Status? Single MIGRATION.0301 [id number] Information not available 10/31/2022 Do You Use Your Seat Belt Or Car Seat Routinely? Yes [email or web address].0301 [id number] Information not available 10/31/2022 Do You Have Smoke And Carbon Monoxide Detectors In Your Home? Yes [email or web address].0301 [id number] Information not available 10/31/2022 Are You Passively Exposed To Smoke? No [email or web address].0301 [id number] Information not available 10/31/2022 Do You Or Have You Ever Used Smokeless Tobacco? Never Used Smokeless Tobacco MIGRATION.0301 [id number] Information not available 10/31/2022 Are There Any Smokers In Your House? No MIGRATION.0301 [id number] Information not available 10/31/2022 How Much Tobacco Do You Smoke? No MIGRATION.0301 418013 Information not available 10/31/2022 What Types Of Sporting Activities Do You Participate In? None MIGRATION.0301 [id number] Information not available 10/31/2022 Do You Feel Stressed (tense, Restless, Nervous, Or Anxious, Or Unable To Sleep At Night)? [id number] MIGRATION.0301 478912 Information not available 10/31/2022 Do You Use Any Illicit Or Recreational Drugs? No MIGRATION.0301 [id number] Information not available 10/31/2022 Do You Use Sunscreen Routinely? No MIGRATION.0301 615444 Information not available 10/31/2022 Has Tobacco Cessation Counseling Been Provided? No MIGRATION.0301 [id number] Information not available 10/31/2022 How Many Years Have You Smoked Tobacco? 0 MIGRATION.0301 [id number] Information not available 10/31/2022 Have You Recently Traveled Abroad? No MIGRATION.0301 179608 Information not available 10/31/2022 Do You Have Any Dietary Restrictions? No MIGRATION.0301 190363 Information not available 10/31/2022 Do You Or Have You Ever Used Any Other Forms Of Tobacco Or Nicotine? No MIGRATION.0301 502180 Information not available 10/31/2022 Sex: Male Functional Status Question Answer Note LastModified by [employer] Details LastModified Time Do you have difficulty walking or climbing stairs? No MIGRATION.393162 6021 Information not available 10/31/2022 Do you have transportation difficulties? No MIGRATION.096348 9101 Information not available 10/31/2022 Are you able to walk? YESWOREST MIGRATION.054541 6600 Information not available 10/31/2022 Do you have difficulty doing errands alone? No MIGRATION.973325 1013 Information not available 10/31/2022 Are you able to care for yourself? Yes MIGRATION.343785 8689 Information not available 10/31/2022 Do you have difficulty dressing or bathing? No MIGRATION.413565 0518 Information not available 10/31/2022 What is your exercise level? Moderate does a lot of walking and lifting at work MIGRATION.601230 2298 Information not available 10/31/2022 Mental Status Question Answer Note LastModified by [employer] Details LastModified Time Do you have difficulty concentrating, remembering or making decisions? No MIGRATION.[id number] 6 Information not available 10/31/2022 Family History Relationship Description Onset Age of this Age Resolved Age Notes LastModified by Organization Details LastModified Time Mother Essential hypertension MIGRATION.214 [id number] Not available 10/31/2022 04:44:20 Mother Diabetes mellitus MIGRATION.667 [id number] Not available 10/31/2022 04:44:20 Father Essential hypertension MIGRATION.629 [id number] Not available 10/31/2022 04:44:20 Father Diabetes mellitus MIGRATION.281 [id number] Not available 10/31/2022 04:44:20 Father Heart disease MIGRATION.346 [id number] Not available 10/31/2022 04:44:20 Paternal Grandmother Diabetes mellitus MIGRATION.438 [id number] Not available 10/31/2022 04:44:20 Paternal Aunt Diabetes mellitus MIGRATION.477 [id number] Not available 10/31/2022 04:44:20 Maternal Grandfather Heart disease MIGRATION.586 [id number] Not available 10/31/2022 04:44:20 Medical History Condition Response NERVE DISEASE N BLINDNESS N RHEUMATIC FEVER N KIDNEY STONES Y BLADDER PROBLEMS N MRSA N OTHER # 1 N POLIO N LUNG DISEASE/DISORDER N RADIATION / CHEMOTHERAPY N COPD N Other # 2 N BLOOD DISEASES N SURGERY N EAR OR HEARING PROBLEMS N MUMPS N BOWEL PROBLEMS N DEPRESSION (INCLUDING POST ) N STROKE/TIA N ULCERS N BENIGN PROSTATIC HYPERPLASIA N MEASLES N MYOCARDIAL INFARCTION N OBESITY N GERD/NAUSEA N ANEURYSM N URINARY/BLADDER/KIDNEY PROBLEMS N CORONARY ARTERY DISEASE (CAD) N ADDICTION CONCERNS N ENDOMETRIOSIS N Impotence N USE OF BLOOD THINNERS N SKIN PROBLEMS N GASTROINTESTINAL DISORDER N PERIPHERAL VASCULAR DISEASE N MUSCLE,JOINT OR BONE PROBLEMS N GASTROINTESTINAL BLEEDING N BLOOD CLOTS N ASTHMA N CATARACTS N ERECTILE DYSFUNCTION N VARICOSITIES N GI PROBLEMS N Low Testosterone N INFERTILITY N AIDS/HIV N CHEMOTHERAPY / RADIATION N LIVER DISEASE N MALE HYPOGONADISM N HYPERTENSION Y Deficiency Y ANXIETY DISORDER N BLOOD TRANSFUSION N ANEMIA/BLOOD DISORDER N CHRONIC EAR INFECTIONS N BRONCHITIS N TUBERCULOSIS N GLAUCOMA N FOOT PROBLEM N DIVERTICULITIS N SLEEP APNEA N CHICKENPOX N INFECTIOUS DISEASE N HEART ARRHYTHMIA N PROSTATE N INSOMNIA N HIGH CHOLESTEROL / HYPERLIPIDEMIA Y HYPERTHYROIDISM N EYE PROBLEMS N NEUROLOGICAL PROBLEMS N EDEMA N CHRONIC PAIN SYNDROME N HYPOTHYROIDISM N CAROTID BLOCKAGE N CONSTIPATION N BACK / NECK PROBLEMS N HAVE YOU BEEN HOSPITALIZED OR SEEN IN THE MEDICAL CENTER IN THE PAST YEAR ? N ATHEROSCLEROSIS N BREAST PROBLEMS N DIALYSIS N ECZEMA N OSTEOPOROSIS N ARTHRITIS N APPENDICITIS N DIABETES, TYPE N BAD TEETH N ENT N HEARTBURN / REFLUX N AFIB N AUTISM SPECTRUM DISORDER (ASD) N HEPATITIS / LIVER DISEASE N GOUT N SLEEP DISORDER N ALZHEIMER'S DISEASE N Brain Problems N HERPES N DEMENTIA N HEADACHES/MIGRAINES N SEIZURES/EPILEPSY N VASCULAR DISEASE N PACEMAKER N Blood Disorder N DIZZINESS N HEART DISEASE/HEART PROBLEMS N KIDNEY DISEASE N MULTIPLE SCLEROSIS N CARDIAC ARRHYTHMIA N CANCER: SPECIFY N ATRIAL FIBRILLATION N Gall Stones N PULMONARY EMBOLISM N AUTOIMMUNE DISEASE N Past Encounters Encounter ID Performer Location Encounter Start Date Encounter Closed Date Diagnosis/Indication Diagnosis SNOMED-CT Code Diagnosis ICD10 Code Diagnosis Note [id number] [facility] [address] [facility] 15 [place] [address] 12/21/2020 00:00:00 12/21/2020 10:22:42 [id number] [facility] Sudarshan rivera [address] [place] [address] y , [place] [address] 01/10/2021 00:00:00 01/10/2021 22:42:37 [id number] [facility] [address] [address] 01/13/2021 00:00:00 01/15/2021 09:41:23 [id number] [facility] [address] [address] 01/18/2021 00:00:00 02/12/2021 12:23:21 [id number] [facility] Sudarshan rivera [address] [place] [address] y , [place] [address] 02/21/2021 00:00:00 02/28/2021 22:08:25 [id number] [facility] [address] [facility] [address] [address] 02/23/2021 00:00:00 02/24/2021 21:18:34 [id number] [facility] 15 [address] [facility] [address] [address] 03/08/2021 00:00:00 03/08/2021 21:20:10 [id number] [facility] [address] [place], [place] [address]., [address] [address] 03/13/2021 00:00:00 03/13/2021 21:38:09 [id number] [facility] [address] [place], [place] [address] [address] [address] 03/29/2021 00:00:00 04/02/2021 22:40:14 [id number] [facility] [address] [place], [place] [address] [address] [address] 06/14/2021 00:00:00 07/03/2021 13:35:11 [id number] [facility] [address] [address] 10/04/2021 00:00:00 10/29/2021 20:27:26 [id number] [facility] [address] [address] 02/14/2022 00:00:00 02/14/2022 10:26:21 [id number] [facility] [address] Raym[address] [address] 08/15/2022 00:00:00 08/19/2022 13:13:24 [id number] Maximus Weeks MD [facility] [address] Essie[address] [address] 02/13/2023 10:10:12 02/13/2023 10:53:26 Benign essential hypertension 4966113 I10 Chronic dermatitis 48045 007 L30.9 Obesity 573692665 E66.9 Hyperlipidemia 90829736 E78.5 [id number] Maximus Weeks MD [facility] [address] [address] 08/07/2023 10:35:40 08/07/2023 12:10:24 Benign essential hypertension 9176875 I10 Chronic dermatitis 76375 007 L30.9 Hyperlipidemia 94266796 E78.5 Health Concerns Section Related Observation LastModified by Organization Detai ls LastModified Time None Recorded Concern Status LastModified by Organization Details LastModified Time None Recorded Advance Directives Directive N: Payers Encounter Date Sequence Insurance Name Policy Number Policy Hogue Covered Member ID Hogue Member ID Guarantor Name 02/13/2023 1 R [id number] Barak Tierney [id number] Barak Tierney 08/07/2023 1 UMR [id number] Barak Tierney [id number] Barak Tierney Notes Date Note Type Note Provider Name and Address Organization Details Recorded Time 02/13/2023 text/html Hypertension no headache no dizzinessObesity not losing any weightDermatitis flared up in the groinDyslipidemia trying to follow low-fat diet Maximus Weeks MD [address], [place], [address], [facility] [employer] [facility] 02/13/2023 12:50:11 08/07/2023 text/html Hypertension no headache no dizzinessObesity not losing any weightDermatitis flared up in the groinDyslipidemia trying to follow low-fat diet Maximus Weeks MD [address], [place], [address], [employer] [facility] 08/09/2023 19:37:36
--- OUTSIDE RECORDS SUMMARY | 2024-12-16 00:11 | XMS_ITS | Continuity of Care Document ---
Author Organization [facility] Address [address] [place] [address] [place] [address] Phone Care Team Providers Care Bath Mixer Name Role Phone Jeronimo Penahil Unavailable Unavailable Procedures Procedure Date Eye Exam, New Patient Advance Directives Directive Yes / No Effective Date File Name No Information Encounters Encounter Description Practice Location Reason(s) For Visit Diagnoses Date Provider Providers Copied on Encounter [facility], [id number] [place] [address] [address], [place], [place], [id number], [place] tel:[phone] [facility] No Information Oct- 5-200 8 Jean Bebeto. [address] [facility] [address], [place], [address], [place]. tel:[phone] Referring Provider: Jesus Jones, [address] [facility] [address], [place], [place], [facility]. tel:[phone] Family History Family Member Type Diagnosis Age At Onset No Information Payers Payer name Insurance type Covered democrat ID Authoriza ticarri(s) [employer] [place] Commercial [place] [id number] Social History Type Description Quantity Date Captured Comments Sex Male Smoking Status No Information Chief Complaint And Reason For Visit No Information Reason For Referral Reason For Referral No Information History Of Present Illness Encounter Date Complaint History Of Prese nt Illness No Information Functional Status Date Functional Assessmen t No Information Instructions Date Instruction Additional Infor mation No Information Assessments Type Assessment Date No Information Patient Care Teams Name Effective Dates (start - stop) Status Members No Information
--- OUTSIDE RECORDS SUMMARY | 2024-12-16 00:12 | XMS_ITS | CONTINUITY OF CARE DOCUMENT ---
Author Name delaney, delaney Address Unknown Organization [facility] Address [address] [facility] [address] [place] [address] Phone [phone] Care Team Providers Care Hat Finisher Name Role Phone Nicki Schaefer MD Unavailable BRISEIDA HUTTON, NASER Unavailable Unavailable BRISEIDA HUTTON, NASCLINT Unavailable Unavailable PROBLEMS Condition Status Date Provider Notes CORONARY ARTERY DISEASE (mal e <55 yo), FAMILY HX completed - Nicki Schaefer MD Nephrolithiasis, recurrent active Nicki Schaefer MD Hyperlipidemia active Nicki Schaefer MD ENCOUNTERS Date Type Provider Location Encounter Diag nosis - In-person encounter Office Visit Nicki Schaefer MD [facility] CORONARY ARTERY DISEASE (male <55 yo), FAMILY HX - In-person encounter Office Visit Nicki Schaefer MD [facility] Hyperlipidemia - In-person encounter Office Visit Nicki Schaefer MD [facility] Nephrolithiasis, recurrent - In-person encounter Office Visit Nicki Schaefer MD [facility] - In-person encounter Office Visit Nicki Schaefer MD [facility] - In-person encounter Office Visit Nicki Schaefer MD [facility] CORONARY ARTERY DISEASE (male <55 yo), FAMILY HX VITAL SIGNS Date Observation Value Provider Body Mass Index (Ratio) 33.22 kg/m2 Topher Schaefer MD blood pressure, diastolic 62 mm[Hg] Da sylvia Denisha blood pressure, systolic 122 mm[Hg] Dac ia Denisha oxygen saturation, oximetry 98 % Dayna Denisha respiratory rate E&M 16 /min Dayna V oss pulse rate 69 /min Dayna Denisha weight E&M 245 [lb_av] Dayna Denisha height E&M 72 [in_i] Dayna Denisha Body Mass Index (Ratio) 32.65 kg/m2 Jesus Martinesray blood pressure, diastolic 79 mm[Hg] Nani Dorado blood pressure, systolic 120 mm[Hg] Suzi Dorado oxygen saturation, oximetry 98 % Lilibeth Dorado respiratory rate E&M 18 /min Ricco Dorado pulse rate 69 /min Lilibeth garcia weight E&M 240.8 [lb_av] Lilibeth manleyon height E&M 72 [in_i] Lilibeth Alonzo valoriecarri Body Mass Index (Ratio) 32.82 kg/m2 Marcelo Lyons blood pressure, resting Yes Topher Schaefer MD blood pressure, cuff size regular Ke rri Azalea blood pressure, diastolic 80 mm[Hg] Kevin rri Azalea blood pressure, systolic 127 mm[Hg] Carson Tristan oxygen saturation, oximetry 99 % Cecilia Tristan respiratory rate E&M 18 /min Cecilia colin pulse rate 79 /min Cecilia li weight E&M 242 [lb_av] Cecilia blacker height E&M 72 [in_i] Cecilia Reddy lder blood pressure, diastolic 78 mm[Hg] Nani Valerio Dorado blood pressure, systolic 117 mm[Hg] Suzi Madsen Dorado pulse rate 68 /min Lilibeth garcia oxygen saturation, oximetry 98 % Lilibeth Dorado respiratory rate E&M 16 /min Ricco Dorado Body Mass Index (Ratio) 32.52 kg/m2 Lenore Dorado weight E&M 239.8 [lb_av] Lilibeth manleyon Body Mass Index (Ratio) 31.60 kg/m2 Maria L hayden Yen blood pressure, diastolic 70 mm[Hg] Me nguyen Yen blood pressure, systolic 131 mm[Hg] Jen davalos Yen pulse rate 77 /min Julianne Yen oxygen saturation, oximetry 99 % Julianne Yen respiratory rate E&M 16 /min Julianne eYn weight E&M 233 [lb_av] Julianne Yen blood pressure, diastolic, left arm 83 mm [Hg] Zain Jarquin RN blood pressure, systolic, left arm 133 mm [Hg] Zain Jarquin RN blood pressure, diastolic, right arm 83 m m[Hg] Zain Jarquin RN blood pressure, systolic, right arm 119 m m[Hg] Zain Jarquin RN blood pressure, diastolic 83 mm[Hg] Jose Jarquin RN blood pressure, systolic 133 mm[Hg] Zain Jarquin RN pulse rate 70 /min Zain Jarquin RN oxygen saturation, oximetry 99 % Zain Jarquin RN respiratory rate E&M 16 /min Zain ferrera RN Body Mass Index (Ratio) 31.17 kg/m2 Zain Jarquin RN weight E&M 229 [lb_av] Zain Jarquin RN height E&M 72 [in_i] Zain Jarquin RN ALLERGIES Allergy Name Onset Date Reaction Criticality Status PENICILLIN Low Criticality active HISTORY OF MEDICATION USE Medication Status Instructions Dates Provider Indications Com ments ATORVASTATIN CALCIUM 10 MG ORAL TABLET active 1 tab once daily Lilibeth Dorado BYSTOLIC 2.5 MG ORAL TABLET active one tab per day Nicki Schaefer MD PEPTO-BISMOL 262 MG/15ML ORAL SUSPENSION active PRN Miguel Lyons VITAMIN D3 49141 UNIT ORAL CAPSULE active weekly Zain Jarquin RN CLARITIN 10 MG ORAL CAPSULE active PRN Miguel Lyons POTASSIUM CHLORIDE VY ER 10 MEQ ORAL TABLET EXTENDED RELEASE active ONE TAB. DAILY Zain Jarquin RN SHRUTHI 5-20 MG ORAL TABLET active ONE TAB. DAILY Zain Jarquin RN ALLOPURINOL 100 MG ORAL TABLET active ONE TAB. DAILY Zain Jarquin RN ADVIL 200 MG ORAL CAPSULE active PRN Miguel Lyons SOCIAL HISTORY Date Observation Value Provider social history E&M Ethnicity: Ca ucasian J ob Status: Employed full-time M arital Status: Single Smoking History: P atient has never smoked. Nicki Schaefer MD social history reviewed E&M revi ewed - no changes required Nicki Schaefer MD alcohol use no Dayna Denisha caffeine use, averag e drinks per day 1+ Dayna Denisha drug use no Dayna Denisha passive cigarette sm elizabeth exposure no Dayna Denisha smoking status Never smoker Dayna Denny number of grandchildren Nicki Bragg social history reviewed E&M revi ewed - no changes required Jade Bragg alcohol use no Lilibeth garcia caffeine use, averag e drinks per day 1+ Lilibeth Dorado drug use no Lilibeth garcia passive cigarette sm elizabeth exposure no Lilibeth Dorado smoking status Never smoker Lilibeth Alfonso caffeine use, averag e drinks per day 1+ Miguel Lyons social history reviewed E&M revi ewed - no changes required Miguel Garciaberg social history E&M Ethnicity: Ca ucasian J ob Status: Employed full-time M arital Status: Single Smoking History: P maggie has never smoked. Miguel Serena alcohol use no Cecilia Reddy lder drug use no Cecilia Reddy lder passive cigarette sm elizabeth exposure no Cecilia Tristan smoking status Never smoker Cecilia sagastume social history E&M Ethnicity: Ca ucasian J ob Status: Employed full-time M arital Status: Single Smoking History: P atkennedy has never smoked. Nicki Schaefer MD social history reviewed E&M revi ewed - no changes required Nicki Schaefer MD alcohol use no Lilibeth Alonzo radha caffeine use, averag e drinks per day yes LilibethMargarette Dorado drug use no Lilibeth Alonzo valorieon passive cigarette sm elizabeth exposure no Lilibeth Dorado smoking status Never smoker Lilibeth Laird pan social history reviewed E&M revi ewed - no changes required Nicki Schaefer MD caffeine use, averag e drinks per day yes Julianne Yen drug use no Julianne Yen passive cigarette sm elizabeth exposure no Julianne Yen smoking status Never smoker Julianne Martinespepe kaye social history E&M E thnicity: J ob Status: Employed full-time M arital Status: Single Nicki Schaefer MD drug use no Zain Jarquin RN passive cigarette sm elizabeth exposure no Zain Jarquin RN caffeine use, averag e drinks per day yes Zain Jarquin RN smoking status never smoker Zain Jarquin RN social history reviewed E&M reviewed Zain Jarquin RN MENTAL STATUS Date Observation Value Provider assessment of judgme nt and insight E&M Alert and oriented to time, place and person. Mood and affect are normal. Zain Jarquin RN FAMILY HISTORY Family Member Condition Mother Family History of Hy pertension: Father Family History of Hy pertension: Father Family History Coron mayra Heart Disease male < 55: INSURANCE PROVIDERS Payer name Policy type / Coverage type Linda red alliance party ID [employer] Other [id number] ADVANCE DIRECTIVES Name Date DISCUSSED - NO DECISION MADE TREATMENT PLAN Date Name Performer Cardiology follow up :On replacement treatment. Nicki Schaefer MD Cardiology follow up:Weight loss advised. Nicki Schaefer MD Cardiology follow up:Follows nep hrology. Stable. Nicki Schaefer MD Cardiology follow up :Continues on Atorvastatin. We await blood results from your office. Nicki Schaefer MD Cardiology follow up :Blood pressure control is satisfactory. Will check echo at next visit. Nicki Schaefer MD Cardiology:BP contro l satisfactory. Continue present medications. Jade Bragg Cardiology:No sympto ms. On allopurinol and potassium citrate. Follows urology. Jade Bragg Cardiology:No sympto ms.On allopurinol and potassium citrate.Follows urology. Nicki Schaefer MD Cardiology:On replacement treatm ent. Nicki Schaefer MD Cardiology:Recently started on atorvastatin.Voices no complaints. Nicki Schaefer MD Cardiology:Weight loss advised. Nicki Schaefer MD Cardiology Nicki Tamez Cardiology:BP contro l satisfactory.Continue present medications. Nicki Schaefer MD Cardiology Follow up:Weight loss advised. Miguel Lyons Cardiology Follow up:No recurren ce. Miguel Lyons Cardiology Follow up :Blood pressure control is satisfactory. Miguel Lyons Cardiology:Resolved. Nicki mari MD Cardiology:Blood pre ssure control is satisfactory. Continues on his medications. Nicki Schaefer MD Cardiology:Weight loss advised. Nicki Schaefer MD Date Name Complete Echo STR - Nuclear HISTORY OF PROCEDURES Procedure Date Procedure Name Provider Procedure Notes S tatus EKG Nicki Schaefer MD complet ed EKG Nicki Schaefer MD complet ed EKG Nicki Schaefer MD complet ed SNOMED-CT: 370530587 [id number] Current Medications Documented Nicki Schaefer MD completed SNOMED-CT: 846491033 Smoking Cessation Counseling Nicki Schaefer MD completed SNOMED-CT: 49693600 Physical Exam, Performed: Pulse Exam of Foot Nicki Schaefer MD completed EKG Nicki Schaefer MD complet ed SNOMED-CT: 196389488 225916 Current Medications Documented Nicki Schaefer MD completed EKG Nicki Schaefer MD complet ed EKG Nicki Schaefer MD complet ed
--- OUTSIDE RECORDS SUMMARY | 2024-12-16 00:12 | XMS_ITS | Clinical Summary ---
Author Organization [facility] Address [address] [facility] [place] [address] Care Team Providers Care Die Reamer Name Role Phone Maximus Weeks MD Primary Care Provider [phone] Source Comments [facility],non-[facility] Affiliates and Associated Physician Practices is amultiple site organization consisting of ambulatory clinics and hospital sitesin [place] and [place]. This disclosure is being madepursuant to the Care Everywhere program and may not contain all information available regarding this patient. Last updated 18.[facility] Allergies Active Allergy Reactions Criticality Noted Date Comments Penicillins 04/16/2017 Medications * Be aware that medications may not be up to date on this document. Alwaysverify current medications with the patient. allopurinol (ZYLOPRIM) 100 MG tablet Take 100 mg by mouth once daily Active POTASSIUM CITRATE-CITRIC ACID PO Active amLODIPine-olmes porsche (SHRUTHI) 5-20 MG tablet Take 1 Tab by mouth once daily Active Nebivolol HCl (BYSTOLIC PO) Active vitamin D, ergocalciferol, (DRISDOL) 78160 UNITS capsule Take 50,000 Units by mouth every 30 days Active Social History Tobacco Use Types Packs/Day Years Used Date Smoking Tobacco: Never Smokeless Tobacco: Never Alcohol Use Standard Drinks/Week Comments Yes 0 (1 standard drink = 0.6 oz pur e alcohol) Sex and Gender Information Value Date Recorded Sex Assigned at Not on file Legal Sex Male 7:43 AM CDT Gender Identity Not on file Sexual Orientation Not on file Last Filed Vital Signs Vital Sign Reading Time Taken Comments Blood Pressure 116/64 04/16/2017 10:47 AM CDT Pulse 70 04/16/2017 10:47 AM CDT Temperature 37 C (98.6 F) 04/16/2017 10:47 AM CDT Respiratory Rate 16 04/16/2017 10:47 AM CDT Oxygen Saturation 98% 04/16/2017 10:47 AM CDT Inhaled Oxygen Concentration - - Weight 104.3 kg (230 lb) 04/16/2017 10:47 AM CDT Height 182.9 cm (6') 04/16/2017 10:47 AM CDT Body Mass Index 31.19 04/16/2017 10:47 AM CDT Plan of Treatment Health Maintenance Due Date Last Done Comments COLOGUARD (AGES 45-75) - COL ON CA SCREENING 1975 COLON MONITORING 1975 COLONOSCOPY - COLON CA SCREENING 1975 CT COLONOGRAPHY - COLON CA SCREENING 1975 Colorectal Cancer Screening 1975 FIT - COLON CA SCREENING 1975 FLEX SIG - COLON CA SCREENING 1975 LIPID TESTING 1975 HIV SCREENING 1990 HEPATITIS C SCREENING 03/09/1993 DTAP/TDAP/TD VACCINES (1 - Tdap) 1994 HEPATITIS B VACCINE (1 of 3 - 19+ 3-dose series) 1994 COVID-19 VACCINE (1 - 2023-2 5 season) 2024 DEPRESSION SCREENING 09/02/2024 ZOSTER VACCINE (1 of 2) 2025 INFLUENZA VACCINE (Season Ended) 2025 HIB VACCINE Aged Out No longer eligi ble based on patient's age to complete this topic HPV VACCINE Aged Out No longer eligi ble based on patient's age to complete this topic MENINGOCOCCAL (Group B) VACC INE SHARED DECISION-MAKING Aged Out No longer eligibl e based on patient's age to complete this topic MENINGOCOCCAL GROUPS A/C/Y/W VACCINE Aged Out No longer eligible b ased on patient's age to complete this topic Insurance [employer] Care Teams Die Reamer Relationship Specialty Start Date End Date Maximus Weeks MD PCP - General Internal Medicine 08/24/19
--- OUTSIDE RECORDS SUMMARY | 2024-12-16 00:12 | XMS_ITS | Data Portability ---
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 Blood work ordered. Healthy lifestyle care instructions. Colonoscopy. Regular exercise. Follow up 6 months. [email or web address] Not available 08/18/2024 13:32:25 Plan of Treatment Reminders Order Date Submit Date Provider Last Modified By Organization Details Last Modified Time Details Appointments ANY 15 2024 09:00A M Destiny Weeks MD Not available Not available Not available Lab PSA, total, serum or plasma 2023 024 [facility], [facility] [address], [place], [address], 08/19/2024 10:14:31 lipid panel, serum 2023 024 JIMENA CHIC[facility], [facility] [address], [address], [place], [address], 08/19/2024 10:14:27 CBC w/ auto diff 2023 024 [facility], [address] [place] [address] [address], [place], [address], 08/19/2024 10:14:30 CMP, serum or plasma 2023 024 [facility], [address] [facility] [address] [address], [place], [address], 08/19/2024 10:14:28 CMP, serum or plasma 2023 024 [facility], [address] [facility] [address] [address], [place], [address], 02/29/2024 08:23:44 CBC w/ auto diff 2023 024 [facility], [address] [facility] [address], [address], [place], [address], 02/29/2024 08:23:45 lipid panel, serum 2023 024 [facility], [address] [facility], [address], [place], [address], 02/29/2024 08:23:43 Referral ophthalmo logist referral - Please give pt a call to schedule an apt in the [place] office. Thank you. 2023 024 [facility], [address], [place], [address], 11/02/2024 11:00:37 Procedures colonosco py screening (PROC) 2023 024 [email or web address], [address], [address], [place], [address], 11/25/2024 14:57:34 Surgeries None recorded. Imaging None recorded. Medication Orders None recorded. Patient TargetsNo targets recorded. 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 Thank you. Referring Physician: Destiny Weeks, Internal Medicine, Encounter Date: 02/28/2024 Results Created Date Observation Date Name Description Value Unit Range Abnormal Flag Note LastModifiedBy Organization Detail LastModifiedTime 02/28/20 24 02/29/2024 LIPID PANEL cholesterol, total 169 mg/dL 100-19 9 Not Available [facility] ([facility]) [address] [place], [address], 02/29/2024 08:23:43 02/28/20 24 02/29/2024 LIPID PANEL triglyceride s 117 mg/dL 0-149 Not Available [facility] ([facility]) [address] [place], [address], 02/29/2024 08:23:43 02/28/20 24 02/29/2024 LIPID PANEL HDL cholesterol 39 mg/dL >39 below low normal Not Available [facility] ([facility]) [address] [place], [address], 02/29/2024 08:23:43 02/28/20 24 02/29/2024 LIPID PANEL VLDL cholesterol isatu 21 mg/dL 5-40 Not Available [facility] ([facility]) [address] [place], [address], 02/29/2024 08:23:43 02/28/20 24 02/29/2024 LIPID PANEL LDL chol calc ([facility]) 109 mg/dL 0-99 above high normal Not Available [facility] ([facility]) [address] [place], [address], 02/29/2024 08:23:43 02/28/20 24 02/29/2024 COMP. METAB OLIC PANEL (14) glucose 66 mg/dL 70-99 below low normal Not Available [facility] ([facility]) [address] [place], [address], 02/29/2024 08:23:44 02/28/20 24 02/29/2024 COMP. METAB OLIC PANEL (14) BUN 16 mg/dL 6-24 Not Available [facility] ([facility]) [address] [place], [address], 02/29/2024 08:23:44 02/28/20 24 02/29/2024 COMP. METAB OLIC PANEL (14) creatinine 1.19 mg/dL 0.76-1 .27 Not Available [facility] ([facility]) [address] [place], [address], 02/29/2024 08:23:44 02/28/20 24 02/29/2024 COMP. METAB OLIC PANEL (14) eGFR 75 mL/mi n/1.7 3 >59 Not Available [facility] ([facility]) [address] [place], [address], 02/29/2024 08:23:44 02/28/20 24 02/29/2024 COMP. METAB OLIC PANEL (14) BUN/creatini ne ratio 13 9-20 Not Available [facility] ([facility]) [address] [place], [address], 02/29/2024 08:23:44 02/28/20 24 02/29/2024 COMP. METAB OLIC PANEL (14) sodium 142 mmol/ L 134-14 4 Not Available [facility] ([facility]) [address] [place], [address], 02/29/2024 08:23:44 02/28/20 24 02/29/2024 COMP. METAB OLIC PANEL (14) potassium 4.1 mmol/ L 3.5-5. 2 Not Available [facility] ([facility] [address] [facility] [place] [address], 02/29/2024 08:23:44 02/28/20 24 02/29/2024 COMP. METAB OLIC PANEL (14) chloride 105 mmol/ L 96-106 Not Available [facility] ([facility]) [address] [place], [address], 02/29/2024 08:23:44 02/28/20 24 02/29/2024 COMP. METAB OLIC PANEL (14) carbon dioxide, total 21 mmol/ L Not Available [facility] ([facility]) [address] [place], [address], 02/29/2024 08:23:44 02/28/20 24 02/29/2024 COMP. METAB OLIC PANEL (14) calcium 9.0 mg/dL 8.7-10 .2 Not Available [facility] ([facility]) [address] [facility] [place], [address], 02/29/2024 08:23:44 02/28/20 24 02/29/2024 COMP. METAB OLIC PANEL (14) protein, total 7.2 g/dL 6.0-8. 5 Not Available [facility] ([facility]) [address] [facility] [place], [address], 02/29/2024 08:23:44 02/28/20 24 02/29/2024 COMP. METAB OLIC PANEL (14) albumin 4.5 g/dL 4.1-5. 1 Not Available [facility] ([facility]) [address] [facility] [place], [address], 02/29/2024 08:23:44 02/28/20 24 02/29/2024 COMP. METAB OLIC PANEL (14) globulin, total 2.7 g/dL 1.5-4. 5 Not Available [facility] ([facility]) [address] [facility] [place], [address], 02/29/2024 08:23:44 02/28/20 24 02/29/2024 COMP. METAB OLIC PANEL (14) bilirubin, total 0.7 mg/dL 0.0-1. 2 Not Available [facility] ([facility]) [address] [facility] [place], [address], 02/29/2024 08:23:44 02/28/20 24 02/29/2024 COMP. METAB OLIC PANEL (14) alkaline phosphatase 80 IU/L 44-121 Not Available [facility] ([facility]) [address] [facility], [place], [address], 02/29/2024 08:23:44 02/28/20 24 02/29/2024 COMP. METAB OLIC PANEL (14) AST (SGOT) 29 IU/L 0-40 Not Available [facility] ([facility]) [address] [facility] [place], [address], 02/29/2024 08:23:44 02/28/20 24 02/29/2024 COMP. METAB OLIC PANEL (14) ALT (SGPT) 45 IU/L 0-44 above high normal Not Available [facility] ([facility]) [address] [facility] [place], [address], 02/29/2024 08:23:44 02/28/20 24 02/29/2024 CBC WITH DIFFE RENTI AL/PL ATELE T WBC 6.9 x10e3 /uL 3.4-10 .8 Not Available [facility] ([facility]) [address] [facility] [place], [address], 02/29/2024 08:23:45 02/28/20 24 02/29/2024 CBC WITH DIFFE RENTI AL/PL ATELE T RBC 5.05 x10e6 /uL 4.14-5 .80 Not Available [facility] ([facility]) [address] [facility], [place], [address], 02/29/2024 08:23:45 02/28/20 24 02/29/2024 CBC WITH DIFFE RENTI AL/PL ATELE T hemoglobin 14.8 g/dL 13.0-1 7.7 Not Available [facility] ([facility]) [address] [facility], [place], [address], 02/29/2024 08:23:45 02/28/20 24 02/29/2024 CBC WITH DIFFE RENTI AL/PL ATELE T hematocrit 45.3 % 37.5-5 1.0 Not Available [facility] ([facility]) [address] [facility], [place], [address], 02/29/2024 08:23:45 02/28/20 24 02/29/2024 CBC WITH DIFFE RENTI AL/PL ATELE T MCV 90 fL 79-97 Not Available [facility] ([facility]) [address] [place], [address], 02/29/2024 08:23:45 02/28/20 24 02/29/2024 CBC WITH DIFFE RENTI AL/PL ATELE T MCH 29.3 pg 26.6-3 3.0 Not Available [facility] ([facility]) [address] [place], [address], 02/29/2024 08:23:45 02/28/20 24 02/29/2024 CBC WITH DIFFE RENTI AL/PL ATELE T MCHC 32.7 g/dL 31.5-3 5.7 Not Available [facility] ([facility]) [address] [place], [address], 02/29/2024 08:23:45 02/28/20 24 02/29/2024 CBC WITH DIFFE RENTI AL/PL ATELE T RDW 13.2 % 11.6-1 5.4 Not Available [facility] ([facility]) [address], [place], [address], 02/29/2024 08:23:45 02/28/20 24 02/29/2024 CBC WITH DIFFE RENTI AL/PL ATELE T platelets 176 x10e3 /uL 150-45 0 Not Available [facility] ([facility]) [address] [facility], [place], [address], 02/29/2024 08:23:45 02/28/20 24 02/29/2024 CBC WITH DIFFE RENTI AL/PL ATELE T neutrophils 63 % notest ab. Not Available [facility] ([facility]) [address] [facility], [place], [address], 02/29/2024 08:23:45 02/28/20 24 02/29/2024 CBC WITH DIFFE RENTI AL/PL ATELE T lymphs 24 % notest ab. Not Available [facility] ([facility]) [address] [facility], [place], [address], 02/29/2024 08:23:45 02/28/20 24 02/29/2024 CBC WITH DIFFE RENTI AL/PL ATELE T monocytes 9 % notest ab. Not Available [facility] ([facility]) [address] [facility], [place], [address], 02/29/2024 08:23:45 02/28/20 24 02/29/2024 CBC WITH DIFFE RENTI AL/PL ATELE T eos 3 % notest ab. Not Available [facility] ([facility]) [address] [facility], [place], [address], 02/29/2024 08:23:45 02/28/20 24 02/29/2024 CBC WITH DIFFE RENTI AL/PL ATELE T basos 1 % notest ab. Not Available [facility] ([facility]) [address] [facility], [place], [address], 02/29/2024 08:23:45 02/28/20 24 02/29/2024 CBC WITH DIFFE RENTI AL/PL ATELE T neutrophils (absolute) 4.4 x10e3 /uL 1.4-7. 0 Not Available [facility] ([facility]) [address] [facility], [place], [address], 02/29/2024 08:23:45 02/28/20 24 02/29/2024 CBC WITH DIFFE RENTI AL/PL ATELE T lymphs (absolute) 1.6 x10e3 /uL 0.7-3. 1 Not Available [facility] ([facility]) [address] [facility], [place], [address], 02/29/2024 08:23:45 02/28/20 24 02/29/2024 CBC WITH DIFFE RENTI AL/PL ATELE T monocytes(ab solute) 0.6 x10e3 /uL 0.1-0. 9 Not Available [facility] ([facility]) [address] [facility], [place], [address], 02/29/2024 08:23:45 02/28/20 24 02/29/2024 CBC WITH DIFFE RENTI AL/PL ATELE T eos (absolute) 0.2 x10e3 /uL 0.0-0. 4 Not Available [facility] ([facility]) [address] [facility], [place], [address], 02/29/2024 08:23:45 02/28/20 24 02/29/2024 CBC WITH DIFFE RENTI AL/PL ATELE T baso (absolute) 0.1 x10e3 /uL 0.0-0. 2 Not Available [facility] ([facility]) [address] [place], [address], 02/29/2024 08:23:45 02/28/20 24 02/29/2024 CBC WITH DIFFE RENTI AL/PL ATELE T immature granulocytes 0 % notest ab. Not Available [facility] ([facility]) [address] [facility], [place], [address], 02/29/2024 08:23:45 02/28/20 24 02/29/2024 CBC WITH DIFFE RENTI AL/PL ATELE T immature grans (abs) 0.0 x10e3 /uL 0.0-0. 1 Not Available [facility] ([facility]) [address] [facility], [place], [address], 02/29/2024 08:23:45 08/18/20 24 08/19/2024 LIPID PANEL cholesterol, total 147 mg/dL 100-19 9 Not Available [facility] ([facility]) [address] [place], [address], 08/19/2024 10:14:27 08/18/20 24 08/19/2024 LIPID PANEL triglyceride s 97 mg/dL 0-149 Not Available [facility] ([facility]) [address] [place], [address], 08/19/2024 10:14:27 08/18/20 24 08/19/2024 LIPID PANEL HDL cholesterol 37 mg/dL >39 below low normal Not Available [facility] ([facility]) [address] [facility], [place], [address], 08/19/2024 10:14:27 08/18/20 24 08/19/2024 LIPID PANEL VLDL cholesterol isatu 18 mg/dL 5-40 Not Available [facility] ([facility]) [address] [place], [address], 08/19/2024 10:14:27 08/18/20 24 08/19/2024 LIPID PANEL LDL chol calc ([facility]) 92 mg/dL 0-99 Not Available [facility] ([facility]) [address] [place], [address], 08/19/2024 10:14:27 08/18/20 24 08/19/2024 COMP. METAB OLIC PANEL (14) glucose 76 mg/dL 70-99 Not Available [facility] ([facility]) [address] [place], [address], 08/19/2024 10:14:28 08/18/20 24 08/19/2024 COMP. METAB OLIC PANEL (14) BUN 20 mg/dL 6-24 Not Available [facility] ([facility]) [address] [place], [address], 08/19/2024 10:14:28 08/18/20 24 08/19/2024 COMP. METAB OLIC PANEL (14) creatinine 1.22 mg/dL 0.76-1 .27 Not Available [facility] ([facility]) [address] [place], [address], 08/19/2024 10:14:28 08/18/20 24 08/19/2024 COMP. METAB OLIC PANEL (14) eGFR 73 mL/mi n/1.7 3 >59 Not Available [facility] ([facility]) [address] [place], [address], 08/19/2024 10:14:28 08/18/20 24 08/19/2024 COMP. METAB OLIC PANEL (14) BUN/creatini ne ratio 16 9-20 Not Available [facility] ([facility]) [address] [place], [address], 08/19/2024 10:14:28 08/18/20 24 08/19/2024 COMP. METAB OLIC PANEL (14) sodium 141 mmol/ L 134-14 4 Not Available [facility] ([facility]) [address] [place], [address], 08/19/2024 10:14:28 08/18/20 24 08/19/2024 COMP. METAB OLIC PANEL (14) potassium 4.1 mmol/ L 3.5-5. 2 Not Available [facility] ([facility]) [address] [place], [address], 08/19/2024 10:14:28 08/18/20 24 08/19/2024 COMP. METAB OLIC PANEL (14) chloride 102 mmol/ L 96-106 Not Available [facility] ([facility]) [address] [place], [address], 08/19/2024 10:14:28 08/18/20 24 08/19/2024 COMP. METAB OLIC PANEL (14) carbon dioxide, total 23 mmol/ L 20-29 Not Available [facility] ([facility]) [address] [place], [address], 08/19/2024 10:14:28 08/18/20 24 08/19/2024 COMP. METAB OLIC PANEL (14) calcium 9.5 mg/dL 8.7-10 .2 Not Available [facility] ([facility]) [address] [place], [address], 08/19/2024 10:14:28 08/18/20 24 08/19/2024 COMP. METAB OLIC PANEL (14) protein, total 7.0 g/dL 6.0-8. 5 Not Available [facility] ([facility]) [address] [place], [address], 08/19/2024 10:14:28 08/18/20 24 08/19/2024 COMP. METAB OLIC PANEL (14) albumin 4.4 g/dL 4.1-5. 1 Not Available [facility] ([facility]) [address] [place], [address], 08/19/2024 10:14:28 08/18/20 24 08/19/2024 COMP. METAB OLIC PANEL (14) globulin, total 2.6 g/dL 1.5-4. 5 Not Available [facility] ([facility]) [address] [place], [address], 08/19/2024 10:14:28 08/18/20 24 08/19/2024 COMP. METAB OLIC PANEL (14) bilirubin, total 1.0 mg/dL 0.0-1. 2 Not Available [facility] ([facility]) [address] [facility], [place], [address], 08/19/2024 10:14:28 08/18/20 24 08/19/2024 COMP. METAB OLIC PANEL (14) alkaline phosphatase 74 IU/L 44-121 Not Available [facility] ([facility]) [address] [facility], [place], [address], 08/19/2024 10:14:28 08/18/20 24 08/19/2024 COMP. METAB OLIC PANEL (14) AST (SGOT) 36 IU/L 0-40 Not Available [facility] ([facility]) [address] [facility], [place], [address], 08/19/2024 10:14:28 08/18/20 24 08/19/2024 COMP. METAB OLIC PANEL (14) ALT (SGPT) 45 IU/L 0-44 above high normal Not Available [facility] ([facility]) [address] [facility], [place], [address], 08/19/2024 10:14:28 08/18/20 24 08/19/2024 CBC WITH DIFFE RENTI AL/PL ATELE T WBC 6.4 x10e3 /uL 3.4-10 .8 Not Available [facility] ([facility]) [address] [facility], [place], [address], 08/19/2024 10:14:30 08/18/20 24 08/19/2024 CBC WITH DIFFE RENTI AL/PL ATELE T RBC 4.69 x10e6 /uL 4.14-5 .80 Not Available [facility] ([facility]) [address] [facility], [place], [address], 08/19/2024 10:14:30 08/18/20 24 08/19/2024 CBC WITH DIFFE RENTI AL/PL ATELE T hemoglobin 13.9 g/dL 13.0-1 7.7 Not Available [facility] ([facility]) [address] [facility], [place], [address], 08/19/2024 10:14:30 08/18/20 24 08/19/2024 CBC WITH DIFFE RENTI AL/PL ATELE T hematocrit 41.8 % 37.5-5 1.0 Not Available [facility] ([facility]) [address] [facility], [place], [address], 08/19/2024 10:14:30 08/18/20 24 08/19/2024 CBC WITH DIFFE RENTI AL/PL ATELE T MCV 89 fL 79-97 Not Available [facility] ([facility]) [address] [facility], [place], [address], 08/19/2024 10:14:30 08/18/20 24 08/19/2024 CBC WITH DIFFE RENTI AL/PL ATELE T MCH 29.6 pg 26.6-3 3.0 Not Available [facility] ([facility]) [address] [facility], [place], [address], 08/19/2024 10:14:30 08/18/20 24 08/19/2024 CBC WITH DIFFE RENTI AL/PL ATELE T MCHC 33.3 g/dL 31.5-3 5.7 Not Available [facility] ([facility]) [address] [place], [address], 08/19/2024 10:14:30 08/18/20 24 08/19/2024 CBC WITH DIFFE RENTI AL/PL ATELE T RDW 13.2 % 11.6-1 5.4 Not Available [facility] ([facility]) [address] [place], [address], 08/19/2024 10:14:30 12/17/20 24 08/19/2024 CBC WITH DIFFE RENTI AL/PL ATELE T platelets 165 x10e3 /uL 150-45 0 Not Available [facility] ([facility]) [address] [facility], [place], [address], 08/19/2024 10:14:30 08/18/20 24 08/19/2024 CBC WITH DIFFE RENTI AL/PL ATELE T neutrophils 59 % notest ab. Not Available [facility] ([facility]) [address] [facility], [place], [address], 08/19/2024 10:14:30 08/18/20 24 08/19/2024 CBC WITH DIFFE RENTI AL/PL ATELE T lymphs 28 % notest ab. Not Available [facility] ([facility]) [address] [facility], [place], [address], 08/19/2024 10:14:30 08/18/20 24 08/19/2024 CBC WITH DIFFE RENTI AL/PL ATELE T monocytes 10 % notest ab. Not Available [facility] ([facility]) [address] [facility], [place], [address], 08/19/2024 10:14:30 08/18/20 24 08/19/2024 CBC WITH DIFFE RENTI AL/PL ATELE T eos 2 % notest ab. Not Available [facility] ([facility]) [address] [facility], [place], [address], 08/19/2024 10:14:30 08/18/20 24 08/19/2024 CBC WITH DIFFE RENTI AL/PL ATELE T basos 1 % notest ab. Not Available [facility] ([facility]) [address] [facility], [place], [address], 08/19/2024 10:14:30 08/18/20 24 08/19/2024 CBC WITH DIFFE RENTI AL/PL ATELE T neutrophils (absolute) 3.8 x10e3 /uL 1.4-7. 0 Not Available [facility] ([facility]) [address] [facility], [place], [address], 08/19/2024 10:14:30 08/18/20 24 08/19/2024 CBC WITH DIFFE RENTI AL/PL ATELE T lymphs (absolute) 1.8 x10e3 /uL 0.7-3. 1 Not Available [facility] ([facility]) [address] [facility], [place], [address], 08/19/2024 10:14:30 08/18/20 24 08/19/2024 CBC WITH DIFFE RENTI AL/PL ATELE T monocytes(ab solute) 0.6 x10e3 /uL 0.1-0. 9 Not Available [facility] ([facility]) [address] [facility], [place], [address], 08/19/2024 10:14:30 08/18/20 24 08/19/2024 CBC WITH DIFFE RENTI AL/PL ATELE T eos (absolute) 0.1 x10e3 /uL 0.0-0. 4 Not Available [facility] ([facility]) [address] [facility], [place], [address], 08/19/2024 10:14:30 08/18/20 24 08/19/2024 CBC WITH DIFFE RENTI AL/PL ATELE T baso (absolute) 0.0 x10e3 /uL 0.0-0. 2 Not Available [facility] ([facility]) [address] [place], [address], 08/19/2024 10:14:30 08/18/20 24 08/19/2024 CBC WITH DIFFE RENTI AL/PL ATELE T immature granulocytes 0 % notest ab. Not Available [facility] ([facility]) [address] [place], [address], 08/19/2024 10:14:30 08/18/20 24 08/19/2024 CBC WITH DIFFE RENTI AL/PL ATELE T immature grans (abs) 0.0 x10e3 /uL 0.0-0. 1 Not Available [facility] ([facility]) [address] [facility], [place], [address], 08/19/2024 10:14:30 08/18/20 24 08/19/2024 PROST ATE-S PECIF IC AG prostate specific Ag 3.8 NG/mL 0.0-4. 0 Arya ECLIA metho dolog y. Accor ding to the Ameri can [employer] g[employer] iatio n, Serum PSA shoul d decre ase and remai n at undet ectab le level s after radic al prost atect billie. The AUA defin es bioch emica l recur rence as an initi al PSA value 0.2 ng/mL or great er follo wed by a subse quent confi rmato ry PSA value 0.2 ng/mL or great er. Value s obtai estella with diffe rent assay metho ds or kits canno t be used inter hernandez eably . Resul ts canno t be inter prete d as absol shavon evide nce of the prese nce or absen ce of spenser ramirez se. Not Available [facility] ([facility]) [address] [facility], [place], [address], 08/19/2024 10:14:31 Result Notes None recorded. Problems Name Problem SNOMED Code Status Onset Date Resolution Date Notes Provider Name and Address Organization Details Recorded Time Essential hypertension 24246217 Active 2023 Heidy Stinson MA null, [place] [facility] 4 13:05:27 Hyperlipidemia 96493720 Active 2023 Heidy Stinson [place] null, [place] [facility] 4 13:05:29 Obesity 911032114 Active 2023 Destiny Weeks MD Attn: Moo g,[address] [facility], [place], [address] , [place] - [facility] 4 16:44:28 Kidney stone 14831550 Active 2023 Destiny Weeks MD Attn: Moo milan,[address] [facility], [place], [address], [facility] - [facility] 4 13:31:58 Problem Notes None recorded. Medical Equipment None Reported. Allergies Allergen ID Allergen Name Allergen Category Reaction Reaction Severity Criticality Documentation Date Start Date Code Code System Note Provider Name and Address Organization Details Recorded Time 837019 penicilli n V Not available hives mild low 02/28/2024 7984 RxNorm Not Available Not Available Not Available Medications Name Sig Start Date Stop Date Status Note LastModified by Organization Details LastModified Time atorvastatin 10 mg tablet Take 1 tablet by mouth once daily 2024 active Not Available Not Available Not Avai lable amlodipine 5 mg tablet Take 1 tablet every day by oral route. 04/13 completed Not Available Not Available Not Available tamsulosin 0.4 mg capsule TAKE 1 CAPSULE BY MOUTH ONCE DAILY active Not Available Not Available No t Available potassium citrate ER 10 mEq (1,080 mg) tablet,exten ded release TAKE 1 TABLET BY MOUTH TWICE DAILY active Not Available Not Available No t Available oxycodone 5 mg tablet TAKE 1 TABLET BY MOUTH EVERY 6 HOURS NEEDED active Not Available Not Available No t Available amlodipine 5 mg-olmesarta n 20 mg tablet Take 1 tablet by mouth once daily 2024 active Not Available Not Available Not Avai lable nebivolol 2.5 mg tablet Take 1 tablet by mouth once daily 2024 active Not Available Not Available Not Avai lable Vitals Date Recorded Body height Body mass index (BMI) Body weight Oxygen saturation Oxygen saturation in Arterial blood by Pulse oximetry Body temperature Heart rate Systolic blood pressure Diastolic blood pressure Provider Name and Address Organization Details Last Updated DateTime 4 182.88 cm 35 kg/m2 286470. 47 g 96 % 96 % 98 [degF] 65 /min 100 mm[Hg] 70 mm[Hg] Margo Dorado MA [facility] 12:23:43 Date Recorded Body height Body mass index (BMI) Body weight Heart rate Oxygen saturation Oxygen saturation in Arterial blood by Pulse oximetry Systolic blood pressure Diastolic blood pressure Provider Name and Address Organization Details Last Updated DateTime 182.88 cm 35.9 kg/m2 493349. 26 g 68 /min 98 % 98 % 120 mm[Hg] 64 mm[Hg] Amanda Andrade MA [facility] 11:29:15 Social History Question Answer Notes LastModified by Organizat ion Details LastModified Time Tobacco Smoking Status Never Smoker Margo Dorado MA null, [facility] 02/28/2024 12:20:27 What Is Your Level Of Alcohol Consumption? None Information not available 02/28/2024 Are You Blind Or Do You Have Difficulty Seeing? No Information n ot available 08/18/2024 In The 14 Days Before Symptom Onset, Have You Had Close Contact With A Laboratory-confirm ed COVID-19 While That Case Was Ill? No Information n ot available 08/18/2024 In The 14 Days Before Symptom Onset, Have You Had Close Contact With A Person Who Is Under Investigation For COVID-19 While That Person Was Ill? No Information not available 08/18/2024 Have You Been To An Area Known To Be High Risk For COVID-19? No Information not available 08/18/2024 Are You Currently Employed? Yes Information not available 08/18/2024 Are You Deaf Or Do You Have Serious Difficulty Hearing? No Information not available 08/18/2024 What Type Of Diet Are You Following? REGULAR Information n ot available 08/18/2024 Are There Any Guns Present In Your Home? No Information not available 08/18/2024 What Was The Date Of Your Most Recent Tobacco Screening? 08/18/2024 Information not available 08/18/2024 Do You Use Your Seat Belt Or Car Seat Routinely? Yes Information not available 08/18/2024 Do You Have Smoke And Carbon Monoxide Detectors In Your Home? Yes Information not available 08/18/2024 Do You Feel Stressed (tense, Restless, Nervous, Or Anxious, Or Unable To Sleep At Night)? [id number] Information not available 08/18/2024 Do You Use Any Illicit Or Recreational Drugs? No Information not available 02/28/2024 Do You Use Sunscreen Routinely? Yes Information not available 08/18/2024 Has Tobacco Cessation Counseling Been Provided? No Information not available 02/28/2024 Do You Or Have You Ever Used Any Other Forms Of Tobacco Or Nicotine? No Information not available 02/28/2024 Sex: Male Functional Status Question Answer Note LastModified by Organization D etails LastModified Time Are you able to care for yourself? Yes Information n ot available 08/18/2024 What is your exercise level? None Information not available 08/18/2024 Mental Status None recorded. Family History Nothing Reported. Medical History No medical history recorded. Past Encounters Encounter ID Performer Location Encounter Start Date Encounter Closed Date Diagnosis/Indication Diagnosis SNOMED-CT Code Diagnosis ICD10 Code Diagnosis Note [id number] Destiny Weeks MD [facility] (Adult Med) [address] [place] [phone] 02/28/2024 11:51:35 02/28/2024 13:24:05 Depression screening 826099769 Z13.31 Obesity 034409057 E66.8 Essential hypertension 06177518 I10 Hyperlipidemia 77863811 E78.5 Ophthalmic examination and evaluation 86349258 Z01.00 [id number] Destiny Weeks MD [facility] (Adult Med) [address] [place] [address] [phone] 08/18/2024 10:53:57 08/18/2024 12:20:50 Body mass index 30+ - obesity 736635514 Z68.35 Obesity 986268730 E66.9 Essential hypertension 75007093 I10 Hyperlipidemia 13799265 E78.5 Screening for malignant neoplasm of prostate 470627067 Z12.5 Screening for malignant neoplasm of colon 174206693 Z12.11 Health Concerns Section Related Observation LastModified by Organization Detai ls LastModified Time None Recorded Concern Status LastModified by Organization Details LastModified Time None Recorded Advance Directives Directive None Recorded Payers Encounter Date Sequence Insurance Name Policy Number Policy [place] Covered Member ID [place] Member ID Guarantor Name 02/28/2024 1 [facility] [id number] Barak Tierney [id number] Barak Tierney 08/18/2024 1 [facility] [id number] Barak Tierney [id number] Barak Tierney Notes Date Note Type Note Provider Name and Address Organization Details Recorded Time 02/28/2024 text/html follow up of his medical problems hypertension no chest pain shortness of breath and palpitations taking the atorvastatin and has no side effects from that his dermatitis has been doing fine little bit overweight and needs some education Destiny Weeks MD Attn: Accounting, [address] [facility], [place], [address], [facility] 02/28/2024 16:44:51 08/18/2024 text/html hypertension no headache or dizziness dyslipidemia needs blood work but he was taking his medication overweight the needs some help with some caloric intake strategies . Kidney stone trying to stay hydrated Destiny Weeks MD Attn: Accounting,[address] [facility], [place], [address], [facility] 08/18/2024 13:32:45
[2024-12-16 08:12] VITALS: BP 135/66; PULSE 61; RESP 19; TEMP 36.3; O2SAT 100; BMI 35.6
[2024-12-16] MEDS: LACTATED RINGERS 1,000 ML 150 ML IV CONT (08:20)
--- NOTE | 2024-12-16 09:10 | WPDANESEPPF ---
Anes - Initial Pre Proc Eval Procedure: Operation Date: 12/16/24 10:00 Proposed Procedures p Screening Colonoscopy - Caleb Lee MD Date/Time: 12/16/24 09:10 Surgeon: Caleb Lee MD Pre Op Diagnosis: screening colon Patient Data Age: 49 Gender: M Height: 1.83 m Weight: 119.3 kg Last Vital Signs Temp 36.3 C L 12/16/24 08:12 Pulse 61 12/16/24 08:12 Resp 19 12/16/24 08:12 BP 135/66 12/16/24 08:12 Pulse Ox 100 12/16/24 08:12 O2 Del Method Room Air 12/16/24 08:12 Allergies Allergy/AdvReac Type Severity Reaction Status Date / Time Penicillins AdvReac Unknown Unknown Verified 12/16/24 08:11 Home Medications ?Medication ?Instructions ?Recorded ?Confirmed ?Type amlodipine 5 mg-olmesartan 20 mg 1 tablet PO DAILY 12/07/24 12/07/24 History tablet atorvastatin 10 mg tablet 10 mg PO DAILY 12/07/24 12/07/24 History nebivolol 2.5 mg tablet 2.5 mg PO DAILY 12/07/24 12/07/24 History potassium citrate 10 mEq (1,080 1,080 mg PO BID 12/07/24 12/07/24 History mg) tablet,extended release tamsulosin 0.4 mg capsule 0.4 mg PO DAILY 12/07/24 12/07/24 History Patient hx anesthesia problems: none Family hx anesthesia problems: none Results Review: All pre-operative results and documents have been reviewed as part of the pre-operative evaluation. [facility] Social History Social History Smoking status: Never smoker Substance use type: does not use Living arrangements: alone Spiritual care concerns: No Anes - Eval Final PreProcedure Day of Procedure 12/16/24 09:10 Patient weight: obese Heart: regular rate and rhythm Lungs: clear to auscultation Airway: Mallampati scale class II Neurological: alert and oriented Last oral intake: >/= 8 hours ASA classification: II Emergent: no Anesthetic plan: proceed Anesthesia type and monitoring: general GIVS and standard monitoring Results Review: All pre-operative results and documents have been reviewed as part of the pre-operative evaluation. Informed Consent: The patient's anesthetic plan and its attendant risks and benefits were discussed with the patient/family/POA. Questions were solicited and answers provided to the satisfaction of the patient/family/POA.
--- NOTE | 2024-12-16 09:14 | P.HP_ITS ---
H&P: HPI History of Present Illness Date/Time: 12/16/24 09:14 Chief Complaint: Screening colonoscopy Narrative: This is the patient's first colonoscopy. There are no GI symptoms and there is no family history of colorectal cancer. Review of Systems Review of Systems: All systems reviewed & are unremarkable except as noted in HPI and below [facility] Social History Social History Smoking status: Never smoker Substance use type: does not use Living arrangements: alone Spiritual care concerns: No Meds Home Medications and Allergies Home Medications ?Medication ?Instructions ?Recorded ?Confirmed ?Type amlodipine 5 mg-olmesartan 20 mg 1 tablet PO DAILY 12/07/24 12/07/24 History tablet atorvastatin 10 mg tablet 10 mg PO DAILY 12/07/24 12/07/24 History nebivolol 2.5 mg tablet 2.5 mg PO DAILY 12/07/24 12/07/24 History potassium citrate 10 mEq (1,080 1,080 mg PO BID 12/07/24 12/07/24 History mg) tablet,extended release tamsulosin 0.4 mg capsule 0.4 mg PO DAILY 12/07/24 12/07/24 History Allergies Allergy/AdvReac Type Severity Reaction Status Date / Time Penicillins AdvReac Unknown Unknown Verified 12/16/24 08:11 Vital Signs Vital Signs - 24 hr 12/16/24 08:12 Temperature 97.3 F L Pulse Rate 61 Respiratory Rate 19 Blood Pressure 135/66 Pulse Oximetry 100 Oxygen Delivery Room Air Exam Const: General: cooperative and healthy appearing Resp: Effort & Inspection: normal respiratory effort and able to speak in complete sentences Auscultation: clear to auscultation bilaterally Cardio: Rate: regular rate Rhythm: regular rhythm GI: Inspection: normal to inspection GI Palp: No No hepatosplenomegaly present Auscultation: normal bowel sounds Rectal Exam: deferred Skin: General skin exam: normal color Psych: Appearance: grossly normal Mental Status: mental status grossly normal Assessment and Plan Assessment and plan (1) Encounter for screening colonoscopy: Code(s): Z12.11 - Encounter for screening for malignant neoplasm of colon Status: Acute Assessment and Plan: The patient is deemed a good candidate for the procedure. Consent signed. Will proceed.
[2024-12-16 09:38] VITALS: BP 108/62; PULSE 54; RESP 19; O2SAT 99
[2024-12-16 09:48] VITALS: BP 103/65; PULSE 53; RESP 19; O2SAT 98
[2024-12-16 09:58] VITALS: BP 115/75; PULSE 57; RESP 20; O2SAT 100
== END 2024-12-16 10:04 | disposition home or self-care (01) ==
PROVIDERS: PCP Internal Medicine; Referring Provider Internal Medicine; Visit Provider Internal Medicine Gastroenterology
PROC: 0DJD8ZZ Inspection of Lower Intestinal Tract, Via Natural or Artificial Opening Endoscopic (ICD-10-PCS; CPT 45378; principal; 2024-12-16 10:00)
DX: Z12.11 Encounter for screening for malignant neoplasm of colon (principal); K62.1 Rectal polyp; K57.30 Diverticulosis of large intestine without perforation or abscess without bleeding; E66.9 Obesity, unspecified; Z68.35 Body mass index [BMI] 35.0-35.9, adult
CPT/HCPCS: 45378; 88305; J2003; J2704; J7120